=== PATIENT | male | born 1945 | race Caucasian/White ===

== ENCOUNTER 2018-05-18 11:29 | Outpatient (CLI) | payer MEDICARE, OTHER, SELFPAY ==
[2018-05-21 10:14] LABS: PSA, Screening 2.8 ng/ml (0-6.5)
== END 2018-05-18 11:49 ==
PROVIDERS: PCP Emergency Medicine; Visit Provider Emergency Medicine
DX: Z12.5 Encounter for screening for malignant neoplasm of prostate (principal)
CPT/HCPCS: 36415; 84153

== ENCOUNTER 2018-10-20 00:43 | Outpatient (CLI) | payer MEDICARE, OTHER, SELFPAY ==
[2018-10-20 10:37] LABS: Cholesterol 281 mg/dL (50-200); HDL Cholesterol 38 mg/dL (40-60); LDL CHOLESTEROL 134 mg/dL (<100); Triglyceride 386 mg/dL (30-150)
[2018-10-22 10:33] LABS: PSA, Diagnostic 3.3 ng/ml (0-6.5)
== END 2018-10-20 01:03 ==
PROVIDERS: PCP Emergency Medicine; Visit Provider Emergency Medicine
DX: E78.5 Hyperlipidemia, unspecified (principal); N13.8 Other obstructive and reflux uropathy; N40.1 Benign prostatic hyperplasia with lower urinary tract symptoms; Z12.5 Encounter for screening for malignant neoplasm of prostate
CPT/HCPCS: 36415; 80061; 83721; 84153

== ENCOUNTER 2019-01-16 12:55 | Outpatient (CLI) | payer MEDICARE, OTHER, SELFPAY ==
[2019-01-16 13:46] LABS: HCT 40.6 % (40.0-50.0); HGB 13.7 g/dL (13.5-17.5); Mean Corp. HGB Concentration 33.7 g/dL (32.0-36.0); Mean Corpuscular Hemoglobin 31.6 pg (27.0-33.0); Mean Corpuscular Volume 93.8 fL (80-95); Mean Platelet Volume 9.4 fL (8.0-11.0); Platelet Count 322 x1000/uL (130-400); RBC 4.33 m/cumm (4.50-6.00); RBC Distribution Width 12.4 % (11.8-14.1); White Blood Cell Count 6.33 k/cumm (4.4-10.8)
[2019-01-16 13:48] LABS: CREATININE 1.09 mg/dL (0.70-1.30)
[2019-01-16 14:02] LABS: NT-proBNP 85 pg/mL
[2019-01-16 14:15] LABS: D-Dimer 849 ng/mlFEU (<500)
--- NOTE | 2019-01-16 14:19 | DI.CT_ITS ---
SYMPTOMS/DIAGNOSIS: DYSPNEA ON EXERTION, R06.09, + D-DIMER CT ANGIOGRAPHY, CHEST: CT angiography was performed with multi slice acquisition and multi planar and 3D reconstruction. CT angiography of the chest was performed with intravenous infusion of 100cc of Omnipaque 350. Images obtained through the upper abdomen are unremarkable. There is no evidence of pulmonary embolic disease. There is no evidence of thoracic aortic dissection or aneurysm. No mediastinal or hilar adenopathy seen. Tracheobronchial tree appears intact. No pleural effusion or pulmonary consolidation. CONCLUSION: Normal CTA chest.
[2019-01-16] MEDS: Omnipaque 350 MG/ML 100 ML BTL IJ (14:23)
== END 2019-01-16 13:15 ==
PROVIDERS: PCP Emergency Medicine; Visit Provider Emergency Medicine
DX: I50.9 Heart failure, unspecified (principal); R06.09 Other forms of dyspnea; R06.02 Shortness of breath; R79.1 Abnormal coagulation profile
CPT/HCPCS: 71275; 85027; 82565; 83880; 85379; J3490

== ENCOUNTER 2019-01-21 02:03 | Outpatient (CLI) | payer MEDICARE, OTHER, SELFPAY ==
--- NOTE | 2019-01-25 11:14 | HOLTER_ITS ---
HOLTER MONITOR DATE OF DICTATION January 25, 2019 INDICATION Shortness of breath on exertion. 48 hour Holter monitor Baseline sinus rhythm. Mean heart rate 78 beats per minute. Max heart rate 141 beats per minute and minimum heart rate 52 beats per minute. Frequent isolated ventricular ectopy. No nonsustained VT. PVCs 0.5% of total beats.. Rare atrial ectopy. No SVT or atrial fibrillation. No significant pauses or david arrhythmias. No diary entries. Enoch Edmond M.D. BERRY/dread T - 01/25/2019
== END 2019-01-21 02:23 ==
PROVIDERS: PCP Emergency Medicine; Visit Provider Emergency Medicine
DX: R06.02 Shortness of breath (principal); I49.3 Ventricular premature depolarization
CPT/HCPCS: 93225

== ENCOUNTER 2019-01-24 11:21 | Outpatient (CLI) | payer MEDICARE, OTHER, SELFPAY | END 2019-01-24 11:41 | PROVIDERS: PCP Emergency Medicine; Visit Provider Emergency Medicine | DX: R06.02 Shortness of breath (principal); I49.3 Ventricular premature depolarization | CPT/HCPCS: 93226 ==

== ENCOUNTER 2019-01-25 15:00 | Outpatient (CLI) | payer MEDICARE, OTHER, SELFPAY | END 2019-01-25 15:20 | PROVIDERS: PCP Emergency Medicine; Referring Provider Emergency Medicine; Visit Provider Internal Medicine Cardiovascular Disease | DX: R06.02 Shortness of breath (principal); I49.3 Ventricular premature depolarization | CPT/HCPCS: 93227 ==

== ENCOUNTER → 2019-03-01 10:13 | Outpatient (BNVA) | payer MEDICARE, OTHER, SELFPAY | PROVIDERS: PCP Emergency Medicine; Referring Provider Emergency Medicine; Visit Provider Surgery | DX: R13.10 Dysphagia, unspecified (principal); K21.0 Gastro-esophageal reflux disease with esophagitis; I10 Essential (primary) hypertension | CPT/HCPCS: 99202 ==

== ENCOUNTER 2019-03-04 00:51 | Outpatient (CLI) | payer MEDICARE, OTHER, SELFPAY ==
--- NOTE | 2019-03-04 06:46 | DI.NM_ITS ---
APPROVED REPORT Exam: Exercise Treadmill Patient Location: Out-Patient Room/Bed: Stress Nurse: Elba Narayan RN Rhythm: RBBB Indications: Chest Pain, Dyspnea Medical History Medical History: HTN, RBBB, Hyperlipidemia, Smoking Medications: Losartan, Aspirin, Rosuvastatin Allergies: Sulfa Cardiac Risk Factors: HTN, Hyperlipidemia, FHX of CAD, Smoking, SOB Pretest Chest Pain Characteristics: Exertional Chest pain, Dyspnea Exercise History: Indeterminate Stress Test Details Test: Exercise stress testing was performed using a Omid protocol. Nuclear Acquisition: Rest Tc-99m/Stress Tc-99m 1 day Rest Isotope: Tc-99m Sestamibi. Dose: 11.5 Date: 03/04/2019 Injection Time: 0900 Stress Isotope: Tc-99m Sestamibi. Dose: 37.3 Date: 03/04/2019 Injection Time: 1044 HR Resting HR: 56 bpm Max Heart Rate (APMHR): 149 bpm Max HR Achieved: 152 bpm Target HR (85% APMHR): 126 bpm % of APMHR: 102 Recovery HR: 74 bpm HR response to stress: Normal HR response to stress BP Resting BP: 134/80 mmHg Max BP: 184/66 mmHg Recovery BP: 146/84 mmHg BP response to stress: Normal blood pressure response to stress. ECG Resting ECG: Sinus Bradycardia, , Clear, Stress ECG: Sinus Tachycardia, RBBB, ST Change: Upsloping ST depression Maximum ST Deviation: 1 mm Arrhythmia: VPC's Recovery ECG: Sinus Rhythm, RBBB Recovery ST Change: Normal Recovery Arrhythmia: VPC, pauses Clinical Reason for Termination: Maximal effort Stress Symptoms: Chest pain Exercise duration: 7.5 min Highest Stage Achieved: Stage 2: 2.5 mph at 12% grade. Exercise capacity: 9.44 METs Overall Exercise Capacity for Age: Average Stress ECG Conclusion 1. This was a maximal effort stress test 2. Patient demonstrated good exercise tolerance (9.44 METS). 3. ECG stress showed 1mm lateral upsloping ST depressions 4. Patient developed nonlimiting chest discomfort during the test 5. The Swenson Score ( -2) estimates an annual cardiovascular mortality of 1% and a five year survival o f 91% Using the Swenson Score there is an intermediate probability of angiographic coronary disease. MPI Conclusion There was significant bowel uptake which affected the interpretability of the study. Imaging is negative for ischemia. Overall: this represents an equivocal MPI stress test
== END 2019-03-04 01:11 ==
PROVIDERS: PCP Emergency Medicine; Visit Provider Emergency Medicine
DX: I25.10 Atherosclerotic heart disease of native coronary artery without angina pectoris (principal); R07.89 Other chest pain; R06.09 Other forms of dyspnea; I45.10 Unspecified right bundle-branch block; E78.5 Hyperlipidemia, unspecified; I10 Essential (primary) hypertension; F17.200 Nicotine dependence, unspecified, uncomplicated; Z82.49 Family history of ischemic heart disease and other diseases of the circulatory system
CPT/HCPCS: 78452; 93016; 93018; 93017

== ENCOUNTER 2019-05-06 00:11 | Outpatient (CLI) | payer MEDICARE, OTHER, SELFPAY ==
--- NOTE | 2019-05-06 08:00 | PFT_ITS ---
DATE: MAY 06, 2019 REQUESTING PROVIDER: Dr. Sixto John INTERPRETATION SPIROMETRY: Spirometry shows no evidence of obstructive airways disease. No bronchodilator response. LUNG VOLUMES: Lung volumes show no evidence of restriction. DIFFUSION CAPACITY: Normal. AIRWAY RESISTANCE: Normal. IMPRESSION: Normal pulmonary function study. Clinical correlation recommended.
[2019-05-06] MEDS: Inhaler, Assist Device 1 EACH MC (10:50)
[2019-05-06] MEDS: Albuterol HFA 18 GM 200 PUFF INH IH (10:52)
== END 2019-05-06 00:31 ==
PROVIDERS: PCP Emergency Medicine; Visit Provider Emergency Medicine
DX: R06.09 Other forms of dyspnea (principal); R07.9 Chest pain, unspecified
CPT/HCPCS: 94060; 94150; 94726; 94729

== ENCOUNTER 2019-06-12 00:32 | Outpatient (CLI) | payer MEDICARE, OTHER, SELFPAY ==
[2019-06-12] MEDS: Barium Sulfate 60% W/V 355 ML BTL PO (09:35)
--- NOTE | 2019-06-12 09:52 | DI.RAD_ITS ---
EXAM: RF BARIUM SWALLOW CLINICAL HISTORY: DYSPNEA ON EXERTION, R06.09, ACHALASIA OF CARDIA, K22.0 TECHNIQUE: 2D and realtime digital imaging was performed. CONTRAST MATERIAL: Oral barium Oral water soluble contrast was administered. COMPARISON: No exams were available for comparison FINDINGS: Initial plain film of the chest reveals clear lungs. Esophagus: The esophagus is patent with no evidence for erosions, fold thickening, strictures, or ma sses. Tertiary contractions were noted. There is a small hiatal hernia and no gastroesophageal reflu x. IMPRESSION: Tertiary contractions. Small hiatal hernia. Fluoro Time: 1.33
[2019-06-12 11:08] LABS: ESR 16 mm/hr (1-20)
[2019-06-12 11:14] LABS: C-Reactive Protein < 0.05 mg/dL (0.0-0.3)
== END 2019-06-12 00:52 ==
PROVIDERS: PCP Emergency Medicine; Visit Provider Emergency Medicine
DX: R06.09 Other forms of dyspnea (principal); K22.0 Achalasia of cardia; K44.9 Diaphragmatic hernia without obstruction or gangrene; K22.4 Dyskinesia of esophagus
CPT/HCPCS: 36415; 85652; 74221; 86140; J3490

== ENCOUNTER → 2019-12-06 09:13 | Outpatient (BNVA) | payer MEDICARE, OTHER, SELFPAY | PROVIDERS: PCP Emergency Medicine; Referring Provider Emergency Medicine; Visit Provider Surgery | DX: R13.19 Other dysphagia (principal); I10 Essential (primary) hypertension | CPT/HCPCS: 99212; 99213 ==

== ENCOUNTER 2019-12-30 07:23 | Outpatient (CLI) | payer MEDICARE, OTHER, SELFPAY ==
[2019-12-29 00:17] LABS: COVID-19 RT-PCR Result NEGATIVE (Negative)
== END 2019-12-30 07:43 ==
PROVIDERS: PCP Emergency Medicine; Visit Provider Surgery
DX: Z01.818 Encounter for other preprocedural examination (principal)
CPT/HCPCS: U0003

== ENCOUNTER 2019-12-31 06:14 | Day surgery (SDC) | payer MEDICARE, OTHER, SELFPAY ==
--- NOTE | 2019-12-31 04:21 | W.PM.ENDDOP ---
Date of service: 12/31/19 Time of Service: 07:42 Endoscopy Report DATE OF PROCEDURE: 12/31/19 PRE-OP DIAGNOSIS: Dysphagia/ GERD POST-OP DIAGNOSIS: same (Gastritis and esophagitis) PROCEDURE: EGD with biopsies SURGEON: Tania Chance ANESTHESIA: other (Genera/ ASA 2/John Bynum, JEFFREY) ESTIMATED BLOOD LOSS: 3 PATHOLOGY: other (Gastric bx, GE junction bx) COMPLICATIONS: None DISPOSITION: same day INDICATIONS: Mr. Zazueta is a pleasant 74 year old male whom I saw back in February for dysphagia. He did not undergo an EGD because he had some dyspnea as well. Cardiac workup was done at [facility] [place] which was could not find a cardiac issue. He underwent PFT's which were normal. he continues to have some dyspnea on exertion without clear cause. he also complains of heart burn which has improved on Omeprazole 40 mg daily. he continues to have dysphagia especially to hot foods. feels that his dysphagia is a little bit worse then it was in February. He denies a morning cough or hoarsness. He has had no N/V. he also complains of some bloating and increased burping. His last EGD was in 2015 and was negative. Risks, benefits and complications have been reviewed. Complications include but are not limited to bleeding, pain, perforation, sore throat, aspiration, and adverse reaction to the medications. Questions were entertained and answered to their satisfaction and they wished to proceed. No guarantees were given or implied. FINDINGS: mild inflammation in the stomach Schatzki's ring and mild inflammation in the distal esophagus PROCEDURE DESCRIPTION: After informed consent was obtained the patient was take to the procedure room and placed in a supine position. Monitors were applied and a time out was done. The patients name, date of , procedure type, allergies to medications and metal in their body was reviewed. A bite block was placed and the patient was sedated. Once sedated and comfortable the gastroscope was advanced through the oropharynx which was grossly normal into the esophagus. The proximal and mid-esophagus were normal. Normal peristalsis was noted in the esophagus. In the distal esophagus there was some scar tissue and mild inflammation noted. The scope was advanced into the stomach and through the pylorus into the 3rd portion of the duodenum. The duodenum was noted to be normal. The scope was retracted back into the stomach. There was mild inflammation noted. Biopsies were done to rule out H. pylori. There were no ulcers. The scope was retro-flexed. The cardia and fundus were noted to be normal. There was a small hiatal hernia noted. The scope was retracted back into the esophagus. The scar tissue was again noted and biopsies were done of the GE junction to rule out Galindo's. The Z line was regular. The GE junction was at 40 cm. The scope was removed and the patient was woken up and taken back to [facility] in stable condition. Follow up: 2 weeks. Continue with omeprazole 40 mg daily. Add Carafate for 2 weeks
--- NOTE | 2019-12-31 04:23 | W.PM.DSUDISC ---
Discharge Plan Disposition Patient Disposition: HOME Condition: Good Discharge Details Reason For Visit: Dysphagia Attending Provider: Tania Chance Primary Care Provider: Sixto John Home Meds and New Rx's Prescriptions: New sucralfate [Carafate] 1 gram tablet 1 gm PO Q6H Qty: 56 RF: 0 Continued metoprolol succinate 25 mg tablet extended release 24 hr 25 mg PO DAILY Qty: 30 RF: 3 aspirin [Aspir-81] 81 MG tablet,delayed release (DR/EC) 1 tab PO DAILY RF: 0 losartan 25 mg tablet 25 mg PO DAILY Qty: 90 RF: 3 omeprazole 40 mg capsule,delayed release(DR/EC) 40 mg PO DAILY Qty: 90 RF: 3 tamsulosin [Flomax] 0.4 mg capsule 0.8 mg PO HS RF: 0 rosuvastatin [Crestor] 10 mg tablet 10 mg PO HS RF: 0 Discharge Instructions Instructions: Diet for Stomach Ulcers and Gastritis (ED), Esophagitis (DC), Gastritis (DC) Additional Instructions: Findings: mild inflammation in the stomach some scar tissue in the esophagus and inflammation Follow up: 2 weeks Please call if you develop: fevers >101.5 Nausea or Vomiting Abdominal pain that is not transient DAY SURGERY UNIT POST ENDOSCOPY INSTRUCTIONS 1. Because there will be medication in your system for the next 24 hours, you may feel a little sleepy. Your coordination will be affected. Therefore: a. Do not drive or operate dangerous equipment for 24 hours. b. Do not drink alcohol beverages for 24 hours (not even beer). c. Plan to go home and rest for the day. 2. Generally there are no restrictions on your activity after a day or so has gone by, but you may feel a bit fatigued for a few days. 3 After you arrive home you may have a light meal and return to a normal diet as you can tolerate it without feeling sick to your stomach. 4. After surgery, you may feel pain or discomfort. This should be only transient, but if it persists please contact your doctor. 5. If there are any questions regarding the findings of your procedure, please feel free to contact your doctor. 6. If you are unable to contact your doctor with a problem, contact the hospital at [phone]. 7. Continue all your regular medications unless directed otherwise. I understand the above instructions and have no questions. Signature of Patient or Responsible Adult Escort Date/Time Name of Responsible Adult Escort Signature of Nurse Date/Time Referrals: Tania Chance MD [ [facility] STAFF PHYSICIAN] - 01/14/20 8:30 am Activity:: Activity as Tolerated Diet:: low acid Discharge Orders Discharge Orders: Discharge Order (Routine); Ordered 12/31/19 Ordered By: Tania Chance
[2019-12-31 06:27] VITALS: BP 132/82; PULSE 79; RESP 17; TEMP 36.5; O2SAT 94
[2019-12-31] MEDS: Lactated Ringers 1,000 ML 80 ML IV (06:50)
--- NOTE | 2019-12-31 07:35 | STOM_PTH ---
PATIENT: Mihir Kelly LOC: [facility] U#:[id number] AGE/SX: 74/M ROOM: RE12/31/[address]: Tania Chance MD : [id number] BED: DIS: 12/31/2019 SPEC #: [id number] RECD: 12/31/19 12:42 STATUS: URBAN RE #: [id number] RICHELLE: 12/31/19 07:[address]: Tania Chance DEPT: Surgical Specimen RECD BY: Kayla Tabor ENTERED: 12/31/19 12:46 SP TYPE: STOMACH OTHR DR: Sixto John DO Tissues: 1 - STOMACH BIOPSY 2 - ESOPHAGUS BIOPSY Procedures: GROSS AND MICRO LEVEL 4 Comments: [id number]
[2019-12-31 08:15] VITALS: BP 136/90; PULSE 65; RESP 17; TEMP 36.4; O2SAT 96
== END 2019-12-31 08:42 | disposition home or self-care (01) ==
LOC: SUR 06:14
PROVIDERS: PCP Emergency Medicine; Visit Provider Surgery
PROC: 0DJ68ZZ Inspection of Stomach, Via Natural or Artificial Opening Endoscopic (ICD-10-PCS; CPT 43235; principal; 2019-12-31 07:30)
DX: R13.10 Dysphagia, unspecified (principal); K31.89 Other diseases of stomach and duodenum; K21.9 Gastro-esophageal reflux disease without esophagitis; I10 Essential (primary) hypertension
CPT/HCPCS: 43239; 88305; J2001; J2704

== ENCOUNTER → 2020-01-14 10:20 | Outpatient (BNVA) | payer MEDICARE, OTHER, SELFPAY | PROVIDERS: PCP Emergency Medicine; Referring Provider Emergency Medicine; Visit Provider Surgery | DX: Z48.815 Encounter for surgical aftercare following surgery on the digestive system (principal); R13.10 Dysphagia, unspecified | CPT/HCPCS: 99212; 99213 ==

== ENCOUNTER 2020-07-17 00:51 | Outpatient (CLI) | payer MEDICARE, OTHER, SELFPAY ==
--- NOTE | 2020-07-17 07:15 | DI.RAD_ITS ---
EXAM: XR CERVICAL SPINE COMP 4-5V CLINICAL HISTORY: cervical pain, decreased ROM,M54.2. TECHNIQUE: 2D digital imaging was performed. COMPARISON: No exams were available for comparison FINDINGS: There is moderate to severe narrowing of the C5-6 disc space. There are small endplate osteophytes a t this level. There are prominent facet degenerative changes causing neural foraminal narrowing at C 3-4 through C5-6. There are degenerative changes at C1-2. Alignment is normal. There is no prevert ebral soft tissue swelling. The airway appears intact. IMPRESSION: Degenerative changes particularly of the facet joints, causing neural foraminal encroachment at multi ple levels. Degenerative disc changes at C5-6. DATA REPOSITORY: RADIATION DOSE DELIVERED:
== END 2020-07-17 00:52 ==
LOC: DI 00:51
PROVIDERS: PCP Emergency Medicine; Visit Provider Family Medicine
DX: M54.2 Cervicalgia (principal); M50.322 Other cervical disc degeneration at C5-C6 level
CPT/HCPCS: 72050

== ENCOUNTER 2020-08-25 10:01 | Outpatient (REF) | payer MEDICARE, OTHER, SELFPAY ==
[2020-08-25 13:39] LABS: Anion Gap 9.1 mmol/L (3-11); BUN 16 mg/dL (7-18); CO2 26.9 mmol/L (21.0-32.0); CREATININE 1.2 mg/dL (0.70-1.30); Calcium 9.1 mg/dL (8.5-10.1); Chloride 106 mmol/L (98-107); Cholesterol 221 mg/dL (<200); Estimated GFR 59.51 (mL/min/1.73m2); Glucose 114 mg/dL (74-106); HDL Cholesterol 38 mg/dL (40-60); Potassium 4.4 mmol/L (3.5-5.1); Sodium 142 mmol/L (136-145); Triglyceride 415 mg/dL (<150)
[2020-08-25 14:10] LABS: LDL CHOLESTEROL 94 mg/dL (<100)
== END 2020-08-25 10:02 | disposition home or self-care (01) ==
LOC: LBN 10:01
PROVIDERS: PCP Emergency Medicine; Visit Provider Emergency Medicine
DX: I10 Essential (primary) hypertension (principal); E78.5 Hyperlipidemia, unspecified
CPT/HCPCS: 80048; 80061; 83721

== ENCOUNTER 2020-12-14 01:26 | Outpatient (CLI) | payer MEDICARE, OTHER, SELFPAY ==
--- NOTE | 2020-12-14 15:35 | DI.MRI_ITS ---
Exam(s) MR CERVICAL SPINE WO EXAM: MR CERVICAL SPINE WO CLINICAL HISTORY: CERVICAL DISC DISORDER WITH RADICULOPATHY,M50.13 TECHNIQUE: Multiplanar multisequence MRI of the cervical spine was performed without intravenous con trast. COMPARISON: CR XR CERVICAL SPINE COMP 4-5V from 07/17/2020 FINDINGS: CERVICOMEDULLARY JUNCTION: Intact with no evidence of cerebellar tonsillar ectopia. No obvious abnor mality of the odontoid process. No evidence of Chiari 1 malformation. CERVICAL SPINAL CORD: There is no abnormal signal in the cervical spinal cord and no evidence of foca l cord atrophy nor focal cord swelling. OSSEOUS:There are no cervical fractures evident. No significant osseous lesions in the cervical vert ebrae. Cervical curvature is maintained. INDIVIDUAL LEVELS: C2-3: No disc herniation nor central canal stenosis. There is facet arthropathy bilaterally however, no obvious foraminal stenosis. C3-4: No disc herniation nor central canal stenosis.Facet arthropathy noted bilaterally. Mild forami nal stenosis. No foraminal stenosis. C4-5: Normal disc height and signal. No disc herniation. No central canal stenosis.Facet arthropath y noted on the left side. Right facet joint unremarkable. Mild foraminal stenosis on the left side no foraminal stenosis C5-6: This level exhibits advanced disc space narrowing and Modic type 2 sub endplate fatty marrow ch bhavna. Small bilateral Luschka joint osteophytes at this level noted. No prominent disc herniation o r central canal stenosis. Mild facet joint arthropathy bilaterally with mild bilateral foraminal maycol nosis. C6-7: Normal disc height and signal. No disc herniation evident.. No central canal stenosis nor for aminal stenosis. Mild degenerative changes in the facet joints. Less than at the other levels. C7-T1: No disc herniation nor central canal stenosis. No facet arthropathy.No foraminal stenosis. IMPRESSION: 1. Chronic degenerative disc disease at C5-6 level. No disc herniation. No central canal stenosis. 2. C6-7 level appears unremarkable. 3. Multilevel asymmetric facet arthropathy which is detailed for individual level above and which is associated with asymmetric foraminal stenosis. Cervical curvature is maintained. No reversal of the curvature evident. No abnormal signal in the spinal cord and cervical spinal cord exhibits no evidence of focal swelling nor focal atrophy. DATA REPOSITORY:
== END 2020-12-14 01:46 ==
PROVIDERS: PCP Emergency Medicine; Visit Provider Nurse Practitioner
DX: M50.322 Other cervical disc degeneration at C5-C6 level (principal); M47.22 Other spondylosis with radiculopathy, cervical region
CPT/HCPCS: 72141

== ENCOUNTER 2021-03-25 23:18 | Outpatient (REF) | payer MEDICARE, OTHER, SELFPAY ==
[2021-03-25 22:31] LABS: HCT 38.5 % (40.0-50.0); HGB 12.8 g/dL (13.5-17.5); MCH 31.8 pg (27.0-33.0); MCHC 33.2 % (32.0-36.0); MCV 95.8 fL (80-95); MPV 10.9 fL (8.0-11.0); Platelet Count 244 10^3/uL (130-400); RBC 4.02 10^6/uL (4.36-5.78); RDW 12.3 % (11.8-14.1); RDW-SD 43.5 fL; WBC 7.03 10^3/uL (4.4-10.8)
[2021-03-25 22:48] LABS: C-Reactive Protein 0.42 mg/dL (0.0-0.3); TSH 1.82 uIU/mL (0.36-3.74)
== END 2021-03-25 23:19 | disposition home or self-care (01) ==
LOC: LBN 23:18
PROVIDERS: PCP Emergency Medicine; Visit Provider Emergency Medicine
DX: E03.9 Hypothyroidism, unspecified (principal); R53.83 Other fatigue; L71.9 Rosacea, unspecified
CPT/HCPCS: 85027; 84443; 86140

== ENCOUNTER 2021-05-06 19:39 | Outpatient (REF) | payer MEDICARE, OTHER, SELFPAY ==
[2021-05-06 18:19] LABS: Abs Immature Grans 0.01 10^3/uL (0.0-0.06); Absolute Basophil Count 0.03 10^3/uL (0.0-0.2); Absolute Eosinophil Count 0.12 10^3/uL (0.0-0.7); Absolute Lymphocyte Count 2.12 10^3/uL (1.2-3.4); Absolute Monocyte Count 0.48 10^3/uL (0.1-0.8); Absolute Neutrophil Count 3.08 10^3/uL (1.2-6.7); Basophils % 0.5; Eosinophils % 2.1; HCT 38.4 % (40.0-50.0); HGB 12.6 g/dL (13.5-17.5); Immature Grans % 0.2; Lymphocytes % 36.3; MCH 31.3 pg (27.0-33.0); MCHC 32.8 % (32.0-36.0); MCV 95.5 fL (80-95); MPV 9.7 fL (8.0-11.0); Monocytes % 8.2; Neutrophils % 52.7; Nucleated RBC 0 %; Platelet Count 268 10^3/uL (130-400); RBC 4.02 10^6/uL (4.36-5.78); RDW-SD 42.4 fL; WBC 5.84 10^3/uL (4.4-10.8)
[2021-05-06 18:42] LABS: Iron 108 ug/dL (65-175); Total Iron Binding Capacity 211 ug/dL (250-450); Transferrin Sat 51 % (20-55)
[2021-05-06 19:10] LABS: Folate 15.9 ng/mL (8.6-20.0); Vitamin B12 172 pg/mL (193-986)
== END 2021-05-06 19:40 | disposition home or self-care (01) ==
LOC: LBN 19:39
PROVIDERS: PCP Emergency Medicine; Visit Provider Emergency Medicine
DX: D64.9 Anemia, unspecified (principal); F32.A Depression, unspecified; I45.4 Nonspecific intraventricular block
CPT/HCPCS: 82607; 82746; 83540; 83550; 85025

== ENCOUNTER 2021-08-26 04:07 | Outpatient (CLI) | payer MEDICARE, OTHER, SELFPAY ==
[2021-08-26 12:10] LABS: HCT 38.2 % (40.0-50.0); HGB 12.8 g/dL (13.5-17.5); MCH 32.5 pg (27.0-33.0); MCHC 33.5 % (32.0-36.0); Platelet Count 292 10^3/uL (130-400); RBC 3.94 10^6/uL (4.36-5.78); RDW 12.6 % (11.8-14.1); RDW-SD 45.3 fL; WBC 7.07 10^3/uL (4.4-10.8)
[2021-08-26 14:30] LABS: Iron 150 ug/dL (65-175); Total Iron Binding Capacity 235 ug/dL (250-450); Transferrin Sat 64 % (20-55)
== END 2021-08-26 04:08 | disposition home or self-care (01) ==
LOC: LBO 04:07
PROVIDERS: PCP Family Medicine; Visit Provider Emergency Medicine
DX: I45.4 Nonspecific intraventricular block (principal); F32.A Depression, unspecified
CPT/HCPCS: 36415; 85027; 83540; 83550

== ENCOUNTER 2021-10-21 03:23 | Outpatient (CLI) | payer MEDICARE, OTHER, SELFPAY ==
[2021-10-21 09:24] LABS: HCT 40.8 % (40.0-50.0); HGB 13.7 g/dL (13.5-17.5); MCH 32.3 pg (27.0-33.0); MCHC 33.6 % (32.0-36.0); MCV 96 fL (80-95); MPV 8.9 fL (8.0-11.0); Platelet Count 277 10^3/uL (130-400); RBC 4.24 10^6/uL (4.36-5.78); RDW 11.9 % (11.8-14.1); RDW-SD 42.5 fL; WBC 10.65 10^3/uL (4.4-10.8)
[2021-10-21 10:24] LABS: Iron 48 ug/dL (65-175); Total Iron Binding Capacity 285 ug/dL (250-450); Transferrin Sat 17 % (20-55)
[2021-10-21 10:49] LABS: ALT 21 U/L (16-63); AST 12 U/L (15-37); Alkaline Phosphatase 103 U/L (46-116); Anion Gap 9.3 mmol/L (3-11); BUN 16 mg/dL (7-18); Bilirubin, Total 0.4 mg/dL (0.2-1.0); CO2 26.7 mmol/L (21.0-32.0); CREATININE 1.2 mg/dL (0.70-1.30); Calculated LDL 116 mg/dL (<100); Chloride 103 mmol/L (98-107); Cholesterol 226 mg/dL (<200); Estimated GFR 59.18 (mL/min/1.73m2); Ferritin 632 ng/mL (26-388); Folate 13.5 ng/mL (8.6-20.0); Glucose 108 mg/dL (74-106); HDL Cholesterol 49 mg/dL (40-60); Potassium 5.1 mmol/L (3.5-5.1); Sodium 139 mmol/L (136-145); TSH (W/Ref FT4) 2.47 uIU/mL (0.36-3.74); Total Protein 7.2 g/dL (6.4-8.2); Triglyceride 306 mg/dL (<150); Vitamin B12 253 pg/mL (193-986)
[2021-10-21 18:59] LABS: PSA, Screening 3.7 ng/mL (<=6.5)
== END 2021-10-21 03:24 | disposition home or self-care (01) ==
LOC: LBO 03:23
PROVIDERS: PCP Family Medicine; Visit Provider Family Medicine
DX: D64.9 Anemia, unspecified (principal); E78.5 Hyperlipidemia, unspecified; I10 Essential (primary) hypertension; R53.83 Other fatigue; K21.9 Gastro-esophageal reflux disease without esophagitis; N40.0 Benign prostatic hyperplasia without lower urinary tract symptoms; R07.9 Chest pain, unspecified; I45.4 Nonspecific intraventricular block; R06.02 Shortness of breath; R68.89 Other general symptoms and signs; Z12.5 Encounter for screening for malignant neoplasm of prostate
CPT/HCPCS: 36415; 80053; 80061; 84153; 85027; 99215; 82607; 82728; 82746; 83540; 83550; 84443

== ENCOUNTER 2021-10-28 18:31 | Outpatient (REF) | payer MEDICARE, OTHER, SELFPAY ==
[2021-10-28 17:17] LABS: Bilirubin Negative (Negative); Blood Negative (Negative); Clarity Clear (Clear); Glucose Negative (Negative); Ketones Negative (Negative); Leukocyte Esterase Negative (Negative); Nitrite Negative (Negative); Specific Gravity 1.025 (1.005-1.025); Urobilinogen 0.2 EU/dL (Up TO 0.2); pH 5.5 (5-8)
== END 2021-10-28 18:32 | disposition home or self-care (01) ==
LOC: LBN 18:31
PROVIDERS: PCP Family Medicine; Visit Provider Urology
DX: N13.8 Other obstructive and reflux uropathy (principal); N40.1 Benign prostatic hyperplasia with lower urinary tract symptoms
CPT/HCPCS: 81003; 87086

== ENCOUNTER → 2021-12-09 08:26 | Outpatient (BNVA) | payer MEDICARE, OTHER, SELFPAY | PROVIDERS: PCP Family Medicine; Referring Provider Family Medicine; Visit Provider Urology | DX: N40.1 Benign prostatic hyperplasia with lower urinary tract symptoms (principal); N13.8 Other obstructive and reflux uropathy | CPT/HCPCS: 99442 ==

== ENCOUNTER 2022-06-27 02:09 | Outpatient (CLI) | payer MEDICARE, SELFPAY ==
--- NOTE | 2022-06-27 | DI.MRI_ITS ---
Exam(s) MR CERVICAL SPINE WO EXAM: MR CERVICAL SPINE WO CLINICAL HISTORY: CERVICAL SPONDYLOSIS, M47.812, MYOFASCIAL PAIN, M79.18, DAGOBERTO OCCIPITAL TECHNIQUE: Multiplanar multisequence MRI of the cervical spine was performed without intravenous con trast. COMPARISON: MR MR CERVICAL SPINE WO from 12/14/2020 FINDINGS: BONES: Vertebral body heights are maintained. Intervertebral disc spaces are normal. Alignment is nor mal. Mild degenerative endplate signal changes are seen in the cervical spine particularly at C5-C6. CERVICAL CORD: Craniovertebral junction is unremarkable. The cervical cord is normal size and signal intensity. SOFT TISSUES: Unremarkable. C2-3: No disc herniation or bulge is identified. No significant central spinal canal or neural forami nal stenosis. C3-4: No disc herniation or bulge is identified. No significant central spinal canal or neural forami nal stenosis C4-5: No disc herniation or bulge is identified. No significant central spinal canal stenosis. There is mild left neural foraminal stenosis. No significant right neural foraminal stenosis. C5-6: No disc herniation or disc bulge. There are mild degenerative changes of the facets bilaterall y. There is mild narrowing of the neural foramen bilaterally. No significant central spinal canal s tenosis. C6-7: No disc herniation or bulge is identified. No significant central spinal canal or neural forami nal stenosis C7-T1: No disc herniation or bulge is identified. No significant central spinal canal or neural adolph inal stenosis IMPRESSION: Stable degenerative changes in the cervical spine. DATA REPOSITORY:
== END 2022-06-27 02:29 ==
LOC: DI 02:09
PROVIDERS: PCP Family Medicine; Visit Provider Nurse Practitioner
DX: M47.812 Spondylosis without myelopathy or radiculopathy, cervical region (principal); M79.18 Myalgia, other site; M54.81 Occipital neuralgia
CPT/HCPCS: 72141

== ENCOUNTER 2022-06-28 00:44 | Outpatient (CLI) | payer MEDICARE, SELFPAY ==
--- NOTE | 2022-06-28 06:45 | DI.NM_ITS ---
APPROVED REPORT Exam: Exercise Treadmill Patient Location: Out-Patient Room/Bed: Stress Nurse: Dahlia Gamble RN Ordering Provider:NATALIA HAWLEY, Contact Number: [phone] BMI: 29.64 Baseline Rhythm: Sinus Bradycardia Comment: RBBB Indications: Chest pain and SOB Medical History Medical History: ETOH abuse, RBBB, hypertension, hyperlipidemia, GERD, depression Cardiac Medications: Rosuvastatin, omeprazole, losartan, aspirin Allergies: Sulfonamide antibiotics Cardiac Risk Factors: Hypertension, hyperlipidemia, family hx Previous Cardiac Procedures: None Pretest Chest Pain Characteristics: None Exercise History: Indeterminate Physical Disabilities: None Lung Sounds: Clear to auscultation, Clear to auscultation Heart Sounds: Regular Stress Test Details Test: Exercise stress testing was performed using a Omid protocol. Nuclear Acquisition: Rest Tc-99m/Stress Tc-99m 1 day Rest Isotope: Tc-99m Sestamibi. Dose: 10.1 Date: 06/28/2022 Injection Time: 0850 Stress Isotope: Tc-99m Sestamibi. Dose: 32.0 Date: 06/28/2022 Injection Time: 1133 HR Resting HR Supine: 59 bpm Max Heart Rate (APMHR): 146.696548 bpm Resting HR Standin bpm Target HR (85% APMHR): 124.376513 bpm Max HR Achieved: 152 bpm % of APMHR: 104.11 Recovery HR: 75 bpm HR response to stress: Normal HR response to stress BP Resting BP Supine: 154/90 mmHg Resting BP Standin/84 mmHg Max BP: 186/70 mmHg Recovery BP: 158/90 mmHg BP response to stress: Normal blood pressure response to stress. ECG Resting ECG: Sinus Rhythm, RBBB Ectopy: None Stress ECG: Sinus Tachycardia, RBBB ST Change: No significant ST segment changes noted Arrhythmia: Frequent PACs, occasional PVCs Recovery ECG: Sinus Rhythm, RBBB Recovery ST Change: No significant ST segment changes noted Recovery Arrhythmia: Frequent PACs, PACs w/ compensatory pauses, PVCs Comment: Ectopy decreased during recovery period. Clinical Reason for Termination: Fatigue Stress Symptoms: General Fatigue, Chest burning Exercise duration: 7 min12 sec Highest Stage Reached: Stage 3: 3.4 mph at 14% grade. Exercise capacity: 8.90 METs Angina Score: Non-Limiting Rate Pressure Product: 23755 Stress ECG Conclusion 1. Resting electrocardiogram showed a right bundle branch block 2. Patient exercised on the Omid protocol and completed a workload of 8.9 METS 3. Normal heart rate and blood pressure response to exercise. Patient achieved greater than 100% of predicted heart rate for age 4. There was no electrocardiographic evidence of myocardial ischemia 5. Atrial and ventricular ectopy was noted 6. See MPI report Stress Test Summary STAGE Time (mins) Speed (mph) Grade (%) HR BP SpO2 SYMPTOMS METS Supine 59 154/90 Standing 69 140/84 96% 1 3 1.7 10 109 168/94 92% 4.5 2 6 2.5 12 138 174/88 93% 7 3 9 3.4 14 148 93% 10 1 min recovery 128 186/70 95% 3 min recovery 83 178/90 96% 6 min recovery 75 158/90 97% MPI Conclusion Myocardial perfusion is normal. There is no ischemia or evidence of prior infarction EF 59%, normal wall motion Radiologist Interpretation Radiologist agrees with Flower Planter's Interpretation. Radiologist Interpretation by: Jessy Flowers MD Interpretation Date/Time: 06/30/2022 14:07:07
== END 2022-06-28 01:04 ==
LOC: DI 00:44
PROVIDERS: PCP Family Medicine; Visit Provider Family Medicine
DX: R07.9 Chest pain, unspecified (principal)
CPT/HCPCS: 78452; 93016; 93018; 93017

== ENCOUNTER → 2022-11-10 10:19 | Outpatient (BNVA) | payer MEDICARE, SELFPAY | PROVIDERS: PCP Family Medicine; Referring Provider Family Medicine; Visit Provider Surgery | DX: Z12.11 Encounter for screening for malignant neoplasm of colon (principal); Z86.010 Personal history of colon polyps; R53.83 Other fatigue | CPT/HCPCS: 36415; 99242 ==

== ENCOUNTER 2022-11-10 11:20 | Outpatient (REF) | payer MEDICARE, SELFPAY ==
[2022-11-10 11:50] LABS: Abs Immature Grans 0.01 10^3/uL (0.0-0.06); Absolute Basophil Count 0.03 10^3/uL (0.0-0.2); Absolute Eosinophil Count 0.14 10^3/uL (0.0-0.7); Absolute Lymphocyte Count 2.39 10^3/uL (1.2-3.4); Absolute Monocyte Count 0.58 10^3/uL (0.1-0.8); Absolute Neutrophil Count 3.64 10^3/uL (1.2-6.7); Basophils % 0.4; Eosinophils % 2.1; HCT 36.9 % (40.0-50.0); HGB 12.6 g/dL (13.5-17.5); Immature Grans % 0.1; Lymphocytes % 35.2; MCH 32.4 pg (27.0-33.0); MCHC 34.1 % (32.0-36.0); MCV 95 fL (80-95); MPV 9.2 fL (8.0-11.0); Monocytes % 8.5; Neutrophils % 53.7; Platelet Count 273 10^3/uL (130-400); RBC 3.89 10^6/uL (4.36-5.78); RDW 12.5 % (11.8-14.1); RDW-SD 43.8 fL; WBC 6.79 10^3/uL (4.4-10.8)
[2022-11-10 12:13] LABS: Iron 117 ug/dL (65-175); Total Iron Binding Capacity 253 ug/dL (250-450); Transferrin Sat 46 % (20-55)
[2022-11-10 13:04] LABS: ALT 25 U/L (16-63); Albumin 3.8 g/dL (3.4-5.0); Alkaline Phosphatase 99 U/L (46-116); Anion Gap 8.8 mmol/L (3-11); BUN 15 mg/dL (7-18); Bilirubin, Total 0.3 mg/dL (0.2-1.0); CO2 26.2 mmol/L (21.0-32.0); CREATININE 1.1 mg/dL (0.70-1.30); Calcium 8.9 mg/dL (8.5-10.1); Chloride 103 mmol/L (98-107); Estimated GFR 70.01 (mL/min/1.73m2); Ferritin 755 ng/mL (26-388); Folate 14.8 ng/mL (8.6-20.0); Glucose 141 mg/dL (74-106); Potassium 4.8 mmol/L (3.5-5.1); Sodium 138 mmol/L (136-145); Vitamin B12 202 pg/mL (193-986)
[2022-11-10 13:14] LABS: AST 14 U/L (15-37)
== END 2022-11-10 11:21 | disposition home or self-care (01) ==
LOC: LBN 11:20
PROVIDERS: PCP Family Medicine; Visit Provider Surgery
DX: D64.9 Anemia, unspecified (principal); I10 Essential (primary) hypertension; R53.83 Other fatigue; R73.09 Other abnormal glucose; E78.5 Hyperlipidemia, unspecified; K21.00 Gastro-esophageal reflux disease with esophagitis, without bleeding; K57.30 Diverticulosis of large intestine without perforation or abscess without bleeding; R79.89 Other specified abnormal findings of blood chemistry; Z79.899 Other long term (current) drug therapy
CPT/HCPCS: 80053; 82607; 82728; 82746; 83540; 83550; 85025

== ENCOUNTER 2022-11-11 13:53 | Outpatient (CLI) | payer MEDICARE, SELFPAY ==
--- NOTE | 2022-11-11 12:00 | DI.RAD_ITS ---
Exam(s) XR CHEST 2V PA LATERAL EXAM: XR CHEST 2V PA LATERAL CLINICAL HISTORY: dyspnea, shortness of breath, R06.02. TECHNIQUE: 2D digital imaging was performed. COMPARISON: CR,RF RF BARIUM SWALLOW from 06/12/2019 FINDINGS: 2 views: Heart size is normal. The mediastinum is not widened. Mild elevation left hemidiaphragm again noted, No obvious infiltrates on the frontal view. On the lateral view there is a band of increased density projected over the heart which is either in the right middle lobe or lingular segment left lung. Ho wever, patient's arms are over this region and this may be artifact. Recommend repeating lateral vie w with arms elevated. IMPRESSION: Recommend repeating lateral view reasons as above. Cannot exclude infiltrate as seen on the lateral view. No pleural effusions. DATA REPOSITORY: RADIATION DOSE DELIVERED:
== END 2022-11-11 14:13 ==
LOC: DI 13:54
PROVIDERS: PCP Family Medicine; Visit Provider Family Medicine
DX: R06.02 Shortness of breath (principal)
CPT/HCPCS: 71046

== ENCOUNTER 2022-11-18 01:09 | Outpatient (CLI) | payer MEDICARE, SELFPAY ==
--- NOTE | 2022-11-18 07:54 | DI.RAD_ITS ---
Exam(s) XR CHEST 1V IN DI DEPT EXAM: XR CHEST 1V IN DI DEPT CLINICAL HISTORY: Lateral view only, SHORTNESS OF BREATH, R06.02 TECHNIQUE: 2D digital imaging was performed of the chest. One images were obtained. Lateral views were obtained. COMPARISON: CR XR CHEST 2V PA LATERAL from 11/11/2022 FINDINGS: HEART: Normal. PULMONARY VASCULATURE: Normal. LUNGS: Clear. PLEURAL SPACE: No pleural effusion or pneumothorax. BONE:Within normal limits for the patient's age. OTHER FINDINGS:Normal. IMPRESSION: No acute pulmonary findings. No evidence of a pulmonary infiltrate. DATA REPOSITORY: RADIATION DOSE DELIVERED:
== END 2022-11-18 01:29 ==
LOC: DI 01:09
PROVIDERS: PCP Family Medicine; Visit Provider Family Medicine
DX: R06.02 Shortness of breath (principal)
CPT/HCPCS: 71045

== ENCOUNTER 2022-11-18 11:52 | Day surgery (SDC) | payer MEDICARE, SELFPAY ==
[2022-11-18 12:14] VITALS: BP 119/74; PULSE 84; RESP 17; TEMP 36.6; O2SAT 96
[2022-11-18] MEDS: Lactated Ringers 1,000 ML 80 ML IV (12:27)
--- NOTE | 2022-11-18 12:50 | W.ANESPRE ---
General Info Date of Service Date Performed: 11/18/22 Height: 5 ft 10.08 in Weight: 85.4 kg Body Mass Index (BMI): 26.9 Surgical Procedure: Operation Date: 11/18/22 12:05 Proposed Procedure Side Surgeon p Colonoscopy/Gastroscopy Mery Strauss, DO Actual Procedure Side Surgeon p Colonoscopy/Gastroscopy Mery Strauss, DO Meds Allergies and Home Medications Allergies Allergy/AdvReac Type Severity Reaction Status Date / Time Sulfa (Sulfonamide Allergy Hives Verified 11/18/22 12:19 Antibiotics) Home Medication Medication Instructions Recorded aspirin 81 mg tablet,delayed 1 tab PO DAILY 09/13/12 release (Aspir-) ibuprofen 200 mg tablet (Advil) 400 mg PO Q6H PRN 07/16/20 gabapentin 100 mg capsule 200 mg PO TID 08/12/21 rosuvastatin 10 mg tablet (Crestor) 10 mg PO HS #90 tabs 04/11/22 sertraline 50 mg tablet 50 mg PO DAILY #90 tabs 06/22/22 losartan 25 mg tablet 25 mg PO DAILY #90 tab-caps 08/02/22 omeprazole 40 mg capsule,delayed 40 mg PO DAILY #90 tab-caps 10/26/22 release tamsulosin 0.4 mg capsule 0.8 mg PO QHS 11/11/22 Current Visit Medications: Current Medications Generic Name Dose Route Start Last Admin Trade Name Freq PRN Reason Stop Dose Admin Hyoscyamine Sulfate 0.125 mg 11/18/22 09:04 Hyoscyamine 0.125 Mg Sl/Oral/Chew SL 12/18/22 09:03 DIRECTED PRN Ringer's Solution 1,000 mls @ 80 mls/hr 11/18/22 06:00 11/18/22 12:27 IV 11/18/22 23:59 80 mls/hr INFUSION NAVEEN Administration IV Miscellaneous Supplies 1 each 11/18/22 06:00 Iv Access IV 11/18/22 23:59 DIRECTED NAVEEN Ondansetron HCl 4 mg 11/18/22 09:04 Ondansetron 4 Mg/2 Ml Vial IVP 12/18/22 09:03 Q4H PRN PRN Nausea / Vomiting Sodium Chloride 0 ml 11/18/22 06:00 Normal Saline Flush 10 Ml Syr IV 11/18/22 23:59 PRN PRN Sodium Chloride 0 ml 11/18/22 06:00 Normal Saline 10 Ml Vial IJ 11/18/22 23:59 DIRECTED PRN Sterile Water 0 ml 11/18/22 06:00 Water,Injection,Sterile 10 Ml Vial IJ 11/18/22 23:59 DIRECTED PRN PFSH Active Problems Active Problems: Problem Status Onset Code History of colon polyps Z86.010 Elevated ferritin R79.89 Skin lesion L98.9 Fatigue R53.83 Neck pain on left side M54.2 Conductive hearing loss, external ear 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 Impacted cerumen, bilateral H61.23 Eye pain H57.10 Depression F32.A Screening for colon cancer Z12.11 Hearing loss H91.90 Tinnitus H93.19 Hyperglycemia R73.9 Essential hypertension I10 BPH w urinary obs/LUTS N40.1, N13.8 Anemia D64.9 Neck pain M54.2 Rosacea L71.9 Hyperlipidemia E78.5 Gastroesophageal reflux disease with esophagitis K21.0 Essential hypertension 03/19/13 I10 Contact dermatitis L25.9 Chest pain R07.9 Bundle branch block 04/27/05 I45.4 Alcohol abuse 07/19/12 F10.10 Abdominal pain, unspecified site 07/13/12 R10.9 Medical History Medical History Acute pancreatitis (07/03/13) 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 DANIEL Diverticulosis of colon without diverticulitis Family history of colon cancer in father and Brother Surgical History Surgical History Colonoscopy - [facility] (11/08/17) [facility]; EARLY DIVERTICULOSIS; DUODENITIS OF THE BULB EGD - [facility] (09/06/12) 2016-negative History of esophagogastroduodenoscopy LAMINECTOMY (~1989) Status post laminectomy Tobacco Smoking/Tobacco Use Status: Never Smokeless tobacco user: snuff Second hand exposure: Yes Alcohol Alcohol Intake: current Alcohol intake frequency: a few times a month Alcohol type: beer Substance Use Substance use: Never Substance use type: does not use Vital Signs and Lab Results Vital Signs Most Recent Vital Signs in EMR: Most Recent Vital Signs Temp Pulse Resp BP Pulse Ox 36.6 C 84 17 119/74 96 11/18/22 12:14 11/18/22 12:14 11/18/22 12:14 11/18/22 12:14 11/18/22 12:14 Lab Results Blood Type / Crossmatch: No Data to Display Complete Blood Count: White Blood Count 6.79 10^3/uL (4.4-10.8) 11/10/22 11:10 Red Blood Count 3.89 10^6/uL (4.36-5.78) L 11/10/22 11:10 Hemoglobin 12.6 g/dL (13.5-17.5) L 11/10/22 11:10 Hematocrit 36.9 % (40.0-50.0) L 11/10/22 11:10 Platelet Count 273 10^3/uL (130-400) 11/10/22 11:10 Complete Metabolic Panel: Sodium 138 mmol/L (136-145) 11/10/22 11:10 Potassium 4.8 mmol/L (3.5-5.1) 11/10/22 11:10 Chloride 103 mmol/L (98-107) 11/10/22 11:10 Carbon Dioxide 26.2 mmol/L (21.0-32.0) 11/10/22 11:10 BUN 15 mg/dL (7-18) 11/10/22 11:10 Creatinine 1.1 mg/dL (0.70-1.30) 11/10/22 11:10 Est GFR (CKD-EPI 2020) 70.01 (mL/min/1.73m2) 11/10/22 11:10 Calcium 8.9 mg/dL (8.5-10.1) 11/10/22 11:10 Albumin 3.8 g/dL (3.4-5.0) 11/10/22 11:10 Glucose 141 mg/dL (74-106) H 11/10/22 11:10 Liver Function Panel: Alanine Aminotransferase (ALT/SGPT) 25 U/L (16-63) 11/10/22 11:10 Aspartate Amino Transf (AST/SGOT) 14 U/L (15-37) L 11/10/22 11:10 Coagulation Panel: No Data to Display Cardiac Panel: No Data to Display Arterial Blood Gas: No Data to Display Venous Blood Gas: No Data to Display Pancreas Panel: No Data to Display Thyroid Panel: No Data to Display Infectious Disease: No Data to Display Blood Cultures: No Data to Display Toxicology Panel: No Data to Display Anesthesia Assessment and Plan Anesthesia History Personal History: No History of Anesthesia Complications Family History: No Family History of Anesthesia Complications Exercise Tolerance Exercise Tolerance: Metabolic Equivalents>4 Pertinent Negatives Pertinent Negatives: No Symptoms of GERD Cardiac & Pulmonary Exam Cardiac Exam: Normal S1/S2 Heart Sounds Pulmonary Exam: Clear Bilateral Breath Sounds Implantable Cardiac Device Does patient have a Pacemaker or an ICD?: No Airway Exam Known Difficult Airway: No Mallampati Class: 2 Mouth Opening: Normal (> 3cm) Thyromental Distance: Greater than 3 cm Neck Range of Motion: Full ROM Neck Circumference: Normal Teeth Condition: Normal Dentition ASA Classification ASA Score: ASA 2 Emergency Case?: No NPO Status NPO Status: NPO Clears >2 hours, Solids >8 hours Anesthesia Plan Resuscitation Status: Full Code Anesthesia Technique: General Anesthesia Airway Planned: Natural Airway Monitors Used: Standard Monitors
[2022-11-18 12:51] VITALS: BMI 26.9
--- NOTE | 2022-11-18 13:04 | STOM_PTH ---
PATIENT: Mihir Kelly LOC: [facility] U#:[id number] AGE/SX: 77/M ROOM: RE11/18/[address]: Mery Strauss : 1945 BED: DIS: 11/18/2022 SPEC #: [id number] RECD: 11/18/22 16:42 STATUS: [facility] #: [id number] RICHELLE: 11/18/22 13:[address]: Mery Strauss DEPT: Surgical Specimen RECD BY: Kayla Tabor ENTERED: 11/18/22 16:44 SP TYPE: STOMACH OTHR DR: Mateusz Cody MD Tissues: 1 - BIOPSY BOWEL 2 - BIOPSY BOWEL 3 - STOMACH BIOPSY 4 - STOMACH BIOPSY 5 - ESOPHAGUS BIOPSY 6 - ESOPHAGUS BIOPSY 7 - BIOPSY BOWEL Procedures: GROSS AND MICRO LEVEL 4 Comments: [id number]
[2022-11-18 13:40] VITALS: BP 116/74; PULSE 62; RESP 16; TEMP 36.5; O2SAT 95
--- NOTE | 2022-11-18 13:47 | ENDO_ITS ---
Date of service: 11/18/22 Time of Service: 13:48 Endoscopy Report DATE OF PROCEDURE: 11/18/22 PRE-OP DIAGNOSIS: dysphagia /hx GERD POST-OP DIAGNOSIS: other (bile reflux ) SURGEON: Mery Strauss ANESTHESIA TYPE: General:No Airway ESTIMATED BLOOD LOSS: 1 PATHOLOGY: other COMPLICATIONS: None DISPOSITION: no change PREP: Miralax/Dulcolax PROCEDURE DESCRIPTION: After informed consent was obtained the patient was take to the procedure room and placed in a supine position. Monitors were applied and a time out was done. The patients name, date of , procedure type, allergies to medications and metal in their body was reviewed. A bite block was placed and the patient was sedated. Once sedated and comfortable the gastroscope was advanced through the oropharynx which was grossly normal into the esophagus. The proximal and mid- esophagus were normal. In the distal esophagus there was no: Stricture, diverticuli, hiatal hernia, or varices. the scope was advanced into the stomach and through the pylorus into the 3rd portion of the duodenum. The duodenum was noted to be normal. Biopsies were done, all specimens are retrieved and no bleeding is noted. The scope was retracted back into the stomach and biopsies were done to rule out H. pylori. there was bile reflux noted through the pylorus upon entering the stomach. There are no ulcers or gastritis noted. The scope was retroflexed. The cardia and fundus were noted to be normal. There is no hiatal hernia noted. The scope was retracted back into the esophagus and biopsies were done of the GE junction to rule out Galindo's. The Z line was regular. The GE junction was at 38 cm. The scope was removed and the morning proceeded with the colonoscopy.
--- NOTE | 2022-11-18 13:49 | W.ANESPOSTOP ---
Postoperative Evaluation Date, Time and Location Date Performed: 11/18/22 Time Performed: 13:49 Patient Location: Day Surgery Unit Vital Signs Most Recent Imported Vital Signs: Most Recent Vital Signs Temp Pulse Resp BP Pulse Ox 36.6 C 84 17 119/74 96 11/18/22 12:14 11/18/22 12:14 11/18/22 12:14 11/18/22 12:14 11/18/22 12:14 Pain Score Most Recent Pain Score: Most Recent Pain Score Pain Level 0 11/18/22 12:14 Assessment Mental Status: Awake (Alert & Oriented to Patient Baseline) Airway and Respiratory Function: Patent airway with normal (patient baseline) respiratory exam Cardiovascular Function: Hemodynamically Stable Hydration Status: Adequately Hydrated Nausea & Vomiting: No Nausea or Vomiting Pain: Pt. Denies Any Pain Peripheral Nerve Block: Patient did not receive a nerve block
--- NOTE | 2022-11-18 13:56 | W.COLOREPORT ---
Date of service: 11/18/22 Time of Service: 15:00 Colonoscopy Report Date of procedure: 11/18/22 Pre-op diagnosis general: anemia/hx of diveritcula Post-op diagnosis procedure note: other (tics adn polyps) Surgeon: Mery Strauss Anesthesia Type: General:No Airway Estimated blood loss (mL): 1 Pathology: other Complications: None Disposition: same day Prep: Miralax/Dulcolax Retraction Time: 11 Procedure Description: After informed consent was obtained the patient was taken to the procedure room and placed in a left decubitous position. Monitors were applied and a time out was done. The patients name, date of , procedure, allergies to medications and metal in their body was reviewed. The patient was then sedated. Once sedated and comfortable a rectal exam was done. External exam was normal; he does have a few external hemorrhoidal tags internal exam revealed a normal sphincter tone and no palpable masses. The scope was then introduced and retrofelexed. No internal hemorrhoids were identified; does have a few internal hemorrhoidal tags . The scope was then advanced to the cecum w/out Pain. Difficulty. The TI and appendiceal orifice were identified. The prep was BBPS 3 In all segments for a total of 9. The scope was then slowly retracted over 11 minutes back into the rectum. He has a flat 5 mm polyps were removed at 30 cm that is removed with a cold biting forcep. All specimen is retrieved and no bleeding is noted. He has a few small mouth diverticula confined to the sigmoid colon. There is no signs of active bleeding or infection. There is no other abnormalities noted in the colon. The mucosa is pink and healthy. . The scope was removed and the patient was woken up and taken back to Same day surgery in stable condition. The patient tolerated the procedure well and there were no immediate complications. Follow up: The patient does not require any routine further screening colonoscopies, unless they develop changes in bowel habits or other new gastrointestinal complaints.
--- NOTE | 2022-11-18 14:00 | PDOC.DSDIS_ITS ---
Date of service: 11/18/22 Time of Service: 14:00 Discharge Plan Disposition Patient Disposition: Home Condition: Good Discharge Details Attending Provider: Mery Strauss Primary Care Provider: Mateusz Cody Home Meds and New Rx's Prescriptions: Continued gabapentin 100 mg capsule 200 mg PO TID tamsulosin 0.4 mg capsule 0.8 mg PO QHS ibuprofen [Advil] 200 mg tablet 400 mg PO Q6H PRN sertraline 50 mg tablet 50 mg PO DAILY Qty: 90 3RF aspirin [Aspir-81] 81 MG tablet,delayed release (DR/EC) 1 tab PO DAILY rosuvastatin [Crestor] 10 mg tablet 10 mg PO HS Qty: 90 3RF losartan 25 mg tablet 25 mg PO DAILY Qty: 90 3RF omeprazole 40 mg capsule,delayed release(DR/EC) 40 mg PO DAILY Qty: 90 3RF Discharge Instructions Additional Instructions: [facility] Colonoscopy Post- Op Instructions Instructions for Everyone who is given Anesthesia: For your safety, please do the following for the next twenty-four (24) hours: *Do Not operate a motor vehicle (car, truck, motorcycle, etc.) *Do Not drink alcoholic beverages or use any recreational drugs for the first 24 hours or while taking pain medications. The medications in your body may have a reaction that can be dangerous. *Do Not make any important decisions or sign any important papers. Findings: esophagus/stomach are normal small polyps and diverticula- make sure you are moving your bowels on a regular basis and not straining. Follow up: My office will send a letter in 2 to 3 weeks time with the results the pathology, and when we want to you to repeat the colonoscopy. 1. No lifting over 20 pounds or strenuous activity for the first 24 hours after your procedure. After 24 hours there are no restrictions on your activity but you may feel fatigued for a few days. 2. After you arrive home you may have a light meal and return to your normal diet as you can tolerate it without feeling sick to your stomach. 3. You may have a bloated, gaseous feeling in your belly (abdomen) after a colonoscopy. Passing gas and belching will help. Walking or lying down on your left side with your knees flexed may relieve the discomfort. Call the office at [phone] (Office) or [phone] (Hospital) right away if you notice any of the following: a.Vomiting of blood or ?coffee ground stools?. b.Rectal bleeding 1Tbsp, blood clots or continuous bleeding. c.Severe belly (abdominal) pain. d.A hard distended belly (abdomen) and an inability to pass gas. 4. Please don?t expect to have a normal BM (bowel movement) for 2-3 days after your procedure. 5. If there are questions regarding the findings of your procedure, please contact your doctor 6. If you are unable to contact your doctor with a problem, contact the hospital at [phone]. 7. Continue all your regular medications unless directed otherwise. I understand the above instructions and have no questions. Signature of Patient or Adult Escort Name of Responsible Adult Escort Signature of Nurse Date/Time DIVERTICULAR DISEASE OVERVIEW???A diverticulum is a pouch-like structure that can form through points of weakness in the muscular wall of the colon (ie, at points where blood vessels pass through the wall). Diverticulosis affects men and women equally. The risk of diverticular disease increases with age. It occurs throughout the world but is seen more commonly in developed countries. WHAT IS DIVERTICULAR DISEASE? Diverticulosis???Diverticulosis merely describes the presence of diverticula. Diverticulosis is often found during a test done for other reasons, such as flexible sigmoidoscopy, colonoscopy, or barium enema. Most people with diverticulosis have no symptoms and will remain symptom free for the rest of their lives. A person with diverticulosis may have diverticulitis, or diverticular bleeding. Diverticulitis???Inflammation of a diverticulum (diverticulitis) occurs when there is thinning and breakdown of the diverticular wall. This may be caused by increased pressure within the colon or by hardened particles of stool, which can become lodged within the diverticulum. The symptoms of diverticulitis depend upon the degree of inflammation present. The most common symptom is pain in the left lower abdomen. Other symptoms can include nausea and vomiting, constipation, diarrhea, and urinary symptoms such as pain or burning when urinating or the frequent need to urinate. Diverticulitis is divided into simple and complicated forms. ?Simple diverticulitis, which accounts for 75 percent of cases, is not associated with complications and typically responds to medical treatment without surgery. ?Complicated diverticulitis occurs in 25 percent of cases and usually requires surgery. Complications associated with diverticulitis can include the following: ?Abscess ? a localized collection of pus ?Fistula ? an abnormal tract between two areas that are not normally connected (eg, bowel and bladder) ?Obstruction ? a blockage of the colon ?Peritonitis ? infection involving the space around the abdominal organ ?Sepsis ? overwhelming body-wide infection that can lead to failure of multiple organs Diverticular bleeding???Diverticular bleeding occurs when a small artery located within a diverticulum is eroded and bleeds into the colon. Diverticular bleeding usually causes painless bleeding from the rectum. In approximately 50 percent of cases, the person will see maroon or bright red blood with bowel movements. Is bleeding with a bowel movement normal?It is not normal to see blood in a b owel movement; this can be a sign of several conditions, most of which are not serious (eg, hemorrhoids) but some of which are serious and require immediate treatment. Anyone who sees blood after a bowel movement should consult with their healthcare provider to determine if further testing or evaluation is needed. DIVERTICULOSIS AND DIVERTICULITIS DIAGNOSIS???Diverticulosis is often found during tests performed for other reasons. ?Barium?enema ? This is an x-ray study that uses barium in an enema to view the outline of the lower intestinal tract. This is an older test and has been largely replaced by computed tomography (CT) scan. ?Flexible sigmoidoscopy ? This is an examination of the inside of the sigmoid colon with a thin, flexible tube that contains a camera. ?Colonoscopy ? This is an examination of the inside of the entire colon. ?CT scan ? A CT scan is often used to diagnose diverticulitis and its complications. If diverticulitis (not just diverticulosis) is suspected, the above three tests should not be used because of the risk of perforation. TREATMENT Diverticulosis???People with diverticulosis who do not have symptoms do not require treatment. However, most clinicians recommend increasing fiber in the diet, which can help to bulk the stools and possibly prevent the development of new diverticula, diverticulitis, or diverticular bleeding. Fiber is not proven to prevent these conditions in all patients but may help to control recurrent episodes in some. Increase fiber???Fruits and vegetables are a good source of fiber.? Fiber content of packaged foods can be calculated by reading the nutrition label. Seeds and nuts???Patients with diverticular disease have historically been advised to avoid whole pieces of fiber (such as seeds, corn, and nuts) because of concern that these foods could cause an episode of diverticulitis. However, this belief is completely unproven. We do not suggest that patients with di verticulosis avoid seeds, corn, or nuts. Diverticulitis???Treatment of diverticulitis depends upon how severe your symptoms are. Home treatment???If you have mild symptoms of diverticulitis (mild abdominal pain, usually left lower abdomen), you can be treated at home with a clear liquid diet and oral antibiotics. However, if you develop one or more of the following signs or symptoms, you should seek immediate medical attention: ?Temperature >100.1?F (38?C) ?Worsening or severe abdominal pain ?An inability to tolerate fluids Hospital treatment???If you have moderate to severe symptoms, you may be hospitalized for treatment. During this time, you are not allowed to eat or drink; antibiotics and fluids are given into a vein. If you develop an abscess of the colon, you may require drainage of the abscess (usually performed by placing a drainage tube across the abdominal wall) or by surgically opening the affected area. Surgery???If you develop a generalized infection in the abdomen (peritonitis), you will usually require an emergency operation. A two-part operation may be necessary in some cases. ?The first operation involves removal of the diseased colon and creation of a colostomy. A colostomy is an opening between the colon and the skin, where a bag is attached to collect waste from the intestine. The lower end of the colon is temporarily sewed closed to allow it to heal. ?Approximately three to six months later, a second operation is performed to reconnect the two parts of the colon and close the opening in the skin. You are then able to empty your bowels through the rectum. Sometimes patients require up to a year to recover from the first operation, depending on how sick they were. In non-emergency situations, the diseased area of the colon can be removed and the two ends of the colon can be reconnected in one operation, without the need for a colostomy. Surgery versus medical therapy???An operation to remove the diseased area of the colon may be necessary if you do not improve with medical therapy. After an episode of uncomplicated diverticulitis, elective surgery is generally not required as the risk of another attack or requiring emergency surgery is low. However, patients with persistent symptoms attributable to diverticulitis, a history of complicated diverticulitis, or a compromised immune system should be evaluated for possible surgery to prevent another attack. In such patients, another attack has been associated with a higher risk of complications or . Of course, the decision will also depend in part upon your other medical conditions and ability to undergo surgery. In many cases, an elective operation can be performed laparoscopically, using small incisions, rather than the typical vertical (up and down) abdominal incision. Laparoscopic surgery usually allows you to recover more quickly and shortens the hospital stay. After diverticulitis resolves???After an episode of diverticulitis resolves, if you have not had a recent colonoscopy, the entire length of the colon should be evaluated to determine the extent of disease and to rule out the presence of abnormal lesions such as polyps or cancer. Recommended tests include colonoscopy, barium enema and sigmoidoscopy, or CT colonography. Diverticular bleeding???Most cases of diverticular bleeding resolve on their own. However, some people will need further testing or treatment to stop bleeding, which may include a colonoscopy, angiography (a treatment that blocks off the bleeding artery), bleeding scan, or surgery. DIVERTICULAR DISEASE PROGNOSIS Diverticulosis???Over time, diverticulosis may cause no problems or it may cause episodes of bleeding and/or diverticulitis. Approximately 15 to 25 percent of people with diverticulosis will develop diverticulitis, while 5 to 15 percent will develop diverticular bleeding. Diverticulitis???Approximately 85 percent of people with uncomplicated diverticulitis will respond to medical treatment, while approximately 15 percent of patients will need an operation. After successful treatment for a first attack of diverticulitis, one-third of patients will remain asymptomatic, one- third will have episodic cramps without diverticulitis, and one-third will go on to have a second attack of diverticulitis. The prognosis tends to remain similar following a second attack of diverticulitis. Only 10 percent of people remain symptom-free after a second attack. Subsequent attacks tend to be of similar severity, not increasing in severity as previously believed. High Fiber Diet What is Dietary Fiber? All fiber comes from plants, bushes, igor or trees.? Of course, the ones that we eat provide us with fruits, vegetables and grains.? There are many different types of fiber but the three that are most important to the health of the body are: Insoluble Fiber This fiber does not dissolve in water, nor is it fermented by the bacteria residing in the colon.? Rather, it retains water and in so doing, helps to promote a larger, bulkier and more regular bowel activity.? This, in turn, may be important in preventing disorder such as diverticulosis and hemorrhoids, and in sweeping out certain toxins and cancer causing carcinogens.? Sources of insoluble fiber are: ? whole grain wheat and other whole grains ? corn bran, including popcorn, unflavored and unsweetened ? nuts and seeds ? potatoes and the skins from most fruits from trees such as apples, bananas and avocados ? many green vegetables such as green beans, zucchini, celery and cauliflower ? some fruit plants such as tomatoes and kiwi Soluble Fiber These fibers are fermented or used by the colon bacteria as a food source or nourishment.? When these good bacteria grow and thrive, many health benefits occur in both the colon and the body.? Soluble fiber is present in some degree in most edible plant foods, but the ones with the most soluble fiber include: ? legumes such as peas and most beans, including soybeans ? oats, rye and barley ? many fruits such as berries, plums, apples bananas and pears ? certain vegetables such as broccoli and carrots ? most root vegetables ? psyllium husk supplement products Benefits of a High Fiber Diet The health benefits of a high fiber diet, consumed on a regular basis and reaching recommended amounts (below), are now fairly well-defined. There are some additional benefits in the early research stage with the prebiotic soluble fibers. What is now known regarding a high fiber diet include: Bowel Regularity A high fiber diet promotes regularity with a softer, bulkier and regular stool pattern. This decreases the chance of hemorrhoids, diverticulosis and perhaps colon cancer. Cholesterol and Reduced Triglycerides The soluble fibers are the ones that will reduce cholesterol levels when used on a regular basis. Psyllium husk and prebiotic soluble fiber will also reduce cholesterol. They may also reduce the incidence of coronary heart disease. Oats, flax seeds and legumes or beans are the recommended fibers. Colon Polyps and Cancer It is still not certain if a high fiber diet helps prevent colon cancer. Considerable research suggests that this may occur. Certainly it makes sense to increase regularity and so speed the movement of cancer causing carcinogens through the bowel. In addition, reducing a heavy meat diet reduces the bile flow from the liver in a favorable way. This, too, reduces the amount of carcinogens that reach and are manufactured in the colon. Finally, a high fiber diet, including prebiotic soluble fiber, increases the integrity and health of the wall of the colon. The risk of cancer may be reduced. Colon Wall Integrity A high fiber diet changes the bacterial makeup of the colon toward a more favorable balance. For instance, it is known that those people with obesity, diabetes type 2 and inflammatory bowel disease have a predominance of bad bacteria in the colon. This, in turn, may render the bowel wall weak and allow bacteria and, indeed, even toxins to seep through. A high fiber diet with a modest reduction in animal and meat products may return the bacterial makeup to a more positive balance. This, in particular, has been seen when the soluble fiber prebiotics are added to the diet. Blood Sugar Soluble fiber such as in legumes (beans), oats and in prebiotic fibers slows the absorption of blood sugar and so helps regulate the sugar in the blood. Insoluble fiber on a regular basis is associated with reduced risk of type 2 diabetes. Weight Loss High fiber diets are more filling and give a sense of fullness sooner than an animal and meat based diet does. In addition, the soluble prebiotic fibers have been shown to turn off the hunger hormones produced in the wall of the gut and to increase the hormones that give a sense of fullness. Those hormones are made in the wall of the gut. New medical research has shown that the bacterial makeup in the colon in overweight people is abnormal to the extent that they manufacture and absorb almost twice the number of calories through the colon wall as do normals. Prebiotic fibers (below) will help change this hormonal balancein a favorable way. Bacteria and the Function of the Colon The colon finishes the digestive process. Hopefully, the waste products move through in a nice regular manner. Insoluble fibers help this process by retaining water and so producing a bulkier, softer stool, which is easy to pass. The additional role of the colon is to provide a home for an enormous number of micro-organisms, mostly bacteria. Recent research has shown that there are over 1,000 species of bacteria with a total bacterial count ten times the number of cells in the body. These bacteria play a major role in keeping the colon wall itself healthy. In addition, these good bacteria produce a very strong immune system for the body. They significantly increase calcium absorption and bone density. They provide other documented benefits. It is the soluble fibers in the diet that are so effective in stimulating the growth of good colon bacteria. How Much is Enough? The amount of fiber in food is measured in grams.? National nutritional authori ties recommend the following amounts of dietary fiber daily. Under Age 50? Over Age 50 Men? 38 grams? 30 grams Women??? 25 grams? 21 grams For a week or so, it is best to tally the amount of fiber you are consuming.? Boxed and packaged foods will have the amount of fiber per serving on the nutrition label. Which Fibers and Which Foods are Best? As noted, healthy fiber is only found in plants. The three major categories are whole grains, fruits and vegetables. Whole Grains Wheat, oats, barley, wild or brown rice, amaranth, buckwheat, bulgur, corn, millet, quinoa, rye, sorghum, teff and triticals. By far, wheat, oats and wild or brown rice are most common. Always buy whole grain products. White bread, baked goods and rolls almost always are made from wheat flour. Wheat flour is white because most of the fiber, vitamins and other nutrients have been removed. Try not buy enriched grains. What this means is that simple white flour has had vitamins added to it by the spray crew. The word, enriched, implies a good and healthy product. On the contrary, enriched means that most of the fiber has been removed and a few vitamins added. Fruits Fruits come from trees such as apple and pear or from bushes or igor. You should eat a wide variety of fruits, preferably with every meal. In many cases, the skin of a fruit such as apple will contain much of the insoluble fiber while the pulp contains most of the soluble fiber. To the extent possible, buy organic fruits as these will have little or no pesticides. Always wash fruit. Vegetables Eat a wide variety of vegetables. They should be a mainstay of lunch and dinners. Frozen vegetables retain as much nutrition and fiber as fresh vegetables. As with fruit, try to buy organic to reduce any residual pesticide ingestion. Wash fresh vegetables thoroughly. Cruciferous vegetables such as broccoli, [place] sprouts and cauliflower contain certain chemicals such as sulforaphane. This substance has very strong anti-cancer properties and should be eaten frequently. Legumes, Beans, Peas and Soybeans These vegetables have plenty of soluble fiber and should be part of a varied vegetable intake. Beans, in particular, contain a certain type of fiber that may lead to harmless gas or bloating. Nuts and Seeds These are rich sources of fiber and are a good substitute for sweets such as candies and baked sweet goods. While nuts and seeds are rich in fiber, they also contain vegetable fat and so can and do add calories. Read the Labels As noted, fresh and frozen foods are usually better.? They have good nutrition and few, if any, chemicals added to them.? When buying packaged foods and, in particular grains, look for three things: ? The first word on the label should be whole, such as whole wheat or whole grain. ? Check out the calories and the amount of fiber in a serving. ? How many and what other additives or chemicals are added.? Fewer is always better.? Do you know what each additive does?? Some are added not for the benefit of the commodity buyer but rather for manufacturers.? These could and do include sugar, artificial flavor, chemicals to prevent oxidation and spoilage, emulsifiers to blend the product.? You have to be a denture waxer. Fiber Facts, Nuggets and Pearls ? For breakfast you can easily get the day started well by using a high fiber, whole grain cereal.? Check the labels.? Add fruit such as blueberries and bananas.? If you are an egg eater, use whole wheat or grain toast.? Adding wheat germ gives you a good fiber kick. ? Always use whole grain or wheat with rolls and sandwiches.? Does your fast food store not have them?? Perhaps you look elsewhere.? Eating an occasional black matamoros or veggie burger provides variety. ? Snacks should consist of fruit and/or nuts.? While nuts are loaded with fiber, they are an energy rich food, meaning they have a lot of calories in a small packet. ? Fruit juices should contain pulp.? Clear juices such as clear orange, pear or apple juice contain little fiber and have a lot of fructose.? Prune juice is usually high in fiber. ? Homemade soups ? adding fresh or frozen vegetables to a chicken or vegetable stock is a good way to start homemade soup. ? Salads ? adding cooked and then chilled vegetables provide great flavoring to almost any salad.? Remember, a amaya salad has lots of cooked corn in it.? Small slices of apples or oranges and nuts such as chopped walnuts or sliced almonds always adds taste, variety and fiber to almost any salad. ? Fruit ? Try to eat fruit of some type with almost every meal. ? Rethink how you place the various foods on your dinner plate.? Reducing the portions of the meat or animal food portion to the side with equal or more portions of vegetables, legumes and fruits portion always allows for more fiber.? There was never anything magic about making the meat or animal food portion the main part of the dinner plate.? Eating from smaller plates can, over time, trick your mind and computer terminal operator habit of using a dinner plate.? Again, there is nothing magic in an 11, 12, or 13 inch dinner plate. Fiber Supplements There are a variety of fiber supplements available on the food or pharmacy shelves. Psyllium This soluble plant fiber has been used in [place] for over 2,000 years. It is a soluble fiber with mucilage in it. This acts to retain a lot of water and also is fermented by colon bacteria. When 7 grams a day are used, it does lower cholesterol. Metamucil in various forms is psyllium. Methyl Cellulose All the cellulose products come from finely ground wood chips which are then treated in a variety of ways such as boiling in acids. Methyl cellulose is an insoluble fiber which does dissolve in water. It is also an emulsifier, meaning it blends oils and water. Citrucel is methyl cellulose (MC). MC may not be appropriate for Crohn?s disease or ulcerative colitis as several medical studies have shown that certain emulsifiers dissolve the mucous lining of the colon in animals prone to Crohn?s disease. This then allows bacteria to invade the underlying tissue. Fiber and Gas Everyone has intestinal gas and that is a good thing.? It means that bacteria, hopefully the good ones, are thriving.? The normal amount of flatus passed each day depends on sex and what is eaten.? The normal number of flatus is 10-20 times a day.? When the bacteria that make intestinal gases are growing, it also means that other good bacteria are using the same fibers to grow and produce multiple health benefits, including the production of healthy short-chain fatty acids.? These substances are produced quietly in the colon and produce many health-related outcomes. Soluble fiber should always be used in a gradual manner.? If too much is consumed at any one time, then excess, but harmless, intestinal gas can occur.? People with irritable bowel syndrome are particularly prone to bloating and mild cramping.? In this instance, soluble fiber in the diet or supplement should be used in small doses and increased gradually. Finally, prebiotic fibers tend to cause the production of short-chain fatty acids which acidify the colon.? This, in turn, reduces or stops the growth of bacteria that make the smelly hydrogen sulfide gases that produce noxious flatus.? People who consume many vegetables with prebiotics or take a prebiotic fiber supplement often have non-odoriferous flatus. Fiber and Irritable Bowel Syndrome Irritable bowel syndrome (IBS) is one of the most common disorders of the lower digestive tract.? The symptoms of IBS can be quite varied.? They can be a mix of several symptoms such as constipation, diarrhea, crampy abdominal discomfort, bloating and gas.? An attack of IBS can be triggered by emotional tension and anxiety, poor dietary habits and certain medications.? It is now known that infections in the intestine can lead to long-term IBS symptoms.? Increased amounts of fiber in the diet can help relieve the symptoms of irritable bowel syndrome by producing soft, bulky stools.? This helps to normalize the time it takes for the stool to pass through the colon.? Recent medical research with newer techniques has shown some surprising and dramatic findings for IBS patients.? Specifically, there is a very significant and abnormal shift of bacteria from those that provide health benefits to those bad bacteria that we really do not want in the gut.? The technical name for this bad group of bacteria is called Firmicutes.? Along with this abnormal bacterial collection, there is a smoldering low-grade inflammation in the gut wall that may contribute to symptoms.? The goal for IBS patients should be to gradually increase the soluble dietary fibers in the diet so as to promote the growth of good bacteria and so suppress the bad ones along with the associated inflammation. IBS patients need to be careful of the amount of soluble fiber they consume.? The reason for this is that, while the good colon bacteria thrive on these fibers and produce health benefits, other gas-forming bacteria may generate excessive but harmless gas and subsequent bloating.? Thus, soluble plant fibers or a dietary prebiotic supplement should be taken in small initial doses and th en gradually increased to tolerance. Fiber and Colon Polyps/Cancer Colon cancer is a major health problem. This disease is most common in Western cultures. It is not seen very often in rural cultures where the diet is mostly plant based. Usually, colon cancer starts out as a colon polyp, a benign mushroom-shaped growth. In time it grows, and in some people it becomes c ancerous. Colon cancer is usually always curable if polyps are removed when found or if surgery is performed at an early stage. It is now known that people can inherit the risk of developing colon cancer, but diet is important, too. As noted, there is a very low rate of colon cancer in residents of countries where grains are unprocessed and retain their fiber. It seems that in the [place] world, cancer-containing agents (carcinogens) remain in contact with the colon wall for a longer time and in higher concentrations. So, a large bulky stool may act to dilute these carcinogens by moving them through the bowel more quickly. Less carcinogenic exposure to the colon may mean fewer colon polyps and less cancer. A very current review of the entire world?s literature on the effect of fiber on colon polyps and cancer prevention has shown rather clearly that for every 10 grams of fiber added to the diet, there is a 10% reduction in incidence of colon cancer. So the recommended 30 gram fiber diet would result in a 30% less chance of getting these tumors. There are also substances produced in the colon by the good bacteria that seem to retard certain pre-cancer factors from developing. They are called short- chain fatty acids (SCFA). See above for description of SCFAs. A high fiber diet increases these substances. So, the combination of dietary fiber and the production of short-chain fatty acids have a clear health benefit. Fiber and Diverticulosis Prolonged, vigorous contraction of the colon over a long period of time may result in diverticulosis.? This increased pressure causes small and, eventually, larger ballooning pockets to form.? These pockets by themselves cause no problem.? However, sometimes they become infected (diverticulitis) or even break open (perforate) causing infection or inflammation within the abdomen (peritonitis).? A high fiber diet increases the bulk in the stool and thereby reduces the pressure within the colon.? By so doing, the formation of pockets may be reduced or possibly even stopped. In the past, many physicians were fearful that seeds as in tomatoes, nuts or berries were harmful and could get inside these pockets and rattle around, causing damage. We now know that this has never been the case and that these foods contain lots of fiber and are actually beneficial for diverticulosis patients. Certain bulking agents such as psyllium are traditional types of bulk producing supplements.? Psyllium is a soluble fiber.? Combining it with insoluble fiber as in wheat bran or corn bran (no gluten) can enhance this bulking effect even more.? A product containing a prebiotic, psyllium and wheat bran is probably a very good combination for bowel regularity. Prebiotin [email or web address].[email or web address]/ Regularity/Diverticulosis is one such product. Activity:: see above Diet:: see eabove Discharge Orders Discharge Orders: Discharge Order (Routine); Ordered 11/18/22 Ordered By: Mery Strauss DS: Diagnosis Discharge Diagnosis (1) Bile reflux gastritis: Status: Acute (2) Diverticula of colon: Status: Acute (3) Adenomatous colon polyp: Status: Acute
[2022-11-18 14:10] VITALS: BP 132/76; PULSE 60; RESP 18; TEMP 36.4; O2SAT 97
== END 2022-11-18 15:40 | disposition home or self-care (01) ==
PROVIDERS: PCP Family Medicine; Visit Provider Surgery
PROC: (CPT 45380; principal; 2022-11-18 12:00)
DX: R13.10 Dysphagia, unspecified (principal); K21.9 Gastro-esophageal reflux disease without esophagitis; D64.9 Anemia, unspecified; K63.5 Polyp of colon; K57.30 Diverticulosis of large intestine without perforation or abscess without bleeding; K64.8 Other hemorrhoids
CPT/HCPCS: 45380; 43239; 88305; 71045; J2001

== ENCOUNTER → 2022-12-08 14:48 | Outpatient (BNVA) | payer MEDICARE, SELFPAY | PROVIDERS: PCP Family Medicine; Referring Provider Family Medicine; Visit Provider Surgery | DX: Z48.815 Encounter for surgical aftercare following surgery on the digestive system (principal); A07.1 Giardiasis [lambliasis]; K57.30 Diverticulosis of large intestine without perforation or abscess without bleeding; K29.60 Other gastritis without bleeding; Z86.010 Personal history of colon polyps | CPT/HCPCS: 99212; 99213 ==

== ENCOUNTER 2022-12-12 11:41 | Outpatient (REF) | payer MEDICARE, SELFPAY | END 2022-12-12 11:42 | disposition home or self-care (01) | LOC: LBN 11:41 | PROVIDERS: PCP Family Medicine; Visit Provider Surgery | DX: A07.1 Giardiasis [lambliasis] (principal) | CPT/HCPCS: 87329 ==

== ENCOUNTER 2023-10-26 04:28 | Outpatient (CLI) | payer MEDICARE, SELFPAY ==
[2023-10-31 11:05] LABS: Specimen WB Whole Blood
== END 2023-10-26 04:29 | disposition home or self-care (01) ==
LOC: LBO 04:28
PROVIDERS: PCP Family Medicine; Visit Provider Family Medicine
DX: E83.110 Hereditary hemochromatosis (principal)
CPT/HCPCS: 36415; 81256

== ENCOUNTER 2023-11-10 09:28 | Outpatient (CLI) | payer MEDICARE, SELFPAY ==
[2023-11-10 12:20] LABS: Abs Immature Grans 0.02 10^3/uL (0.0-0.06); Absolute Basophil Count 0.02 10^3/uL (0.0-0.2); Absolute Eosinophil Count 0.11 10^3/uL (0.0-0.7); Absolute Lymphocyte Count 3.07 10^3/uL (1.2-3.4); Absolute Monocyte Count 0.45 10^3/uL (0.1-0.8); Absolute Neutrophil Count 3.39 10^3/uL (1.2-6.7); Basophils % 0.3 %; Eosinophils % 1.6 %; HCT 36.7 % (40.0-50.0); HGB 12.3 g/dL (13.5-17.5); Immature Grans % 0.3 %; Lymphocytes % 43.5 %; MCH 32.1 pg (27.0-33.0); MCHC 33.5 % (32.0-36.0); MCV 96 fL (80-95); MPV 9.4 fL (8.0-11.0); Monocytes % 6.4 %; Neutrophils % 47.9 %; Platelet Count 286 10^3/uL (130-400); RBC 3.83 10^6/uL (4.36-5.78); RDW 12.2 % (11.8-14.1); RDW-SD 42.5 fL; WBC 7.06 10^3/uL (4.4-10.8)
[2023-11-10 12:47] LABS: Ferritin 519 ng/mL (26-388)
[2023-11-10 12:49] LABS: Iron 108 ug/dL (65-175); Total Iron Binding Capacity 248 ug/dL (250-450); Transferrin Sat 44 % (20-55)
== END 2023-11-10 09:29 | disposition home or self-care (01) ==
LOC: LOS 09:28
PROVIDERS: PCP Family Medicine; Visit Provider Family Medicine
DX: E83.110 Hereditary hemochromatosis (principal)
CPT/HCPCS: 36415; 82728; 83540; 83550; 85025

== ENCOUNTER 2024-01-19 00:16 | Outpatient (CLI) | payer MEDICARE, SELFPAY ==
--- NOTE | 2024-01-19 08:30 | DI.RAD_ITS ---
Exam(s) XR SHOULDER RT COMPLETE 2+V EXAM: XR SHOULDER RT COMPLETE 2+V CLINICAL HISTORY: 6 months rt shoulder pain,m25.511. TECHNIQUE: 2D digital imaging was performed. Five views. COMPARISON: No exams were available for comparison FINDINGS: BONES: No acute fracture is present. No bony destructive lesion is seen. JOINTS: No dislocation present. Mild spurring at the AC joint. Glenohumeral joint space is maintain ed. Minimal spurring at the inferior glenoid. SOFT TISSUE: Normal. IMPRESSION: Mild degenerative changes. DATA REPOSITORY: RADIATION DOSE DELIVERED:
== END 2024-01-19 00:36 ==
LOC: DI 00:16
PROVIDERS: PCP Family Medicine; Visit Provider Nurse Practitioner Family
DX: M25.511 Pain in right shoulder (principal)
CPT/HCPCS: 73030

== ENCOUNTER 2024-02-14 02:41 | Outpatient (RCR) | payer MEDICARE, SELFPAY ==
[2024-02-14 14:05] LABS: HCT 36.8 % (40.0-50.0); HGB 12.4 g/dL (13.5-17.5); MCH 32.6 pg (27.0-33.0); MCHC 33.7 % (32.0-36.0); MCV 97 fL (80-95); Platelet Count 256 10^3/uL (130-400); RDW-SD 43.4 fL; WBC 8.22 10^3/uL (4.4-10.8)
[2024-02-14 14:36] LABS: Ferritin 528 ng/mL (26-388)
[2024-02-14] MEDS: Normal Saline Flush 10 ML SYR IVP (14:36)
== END 2024-02-26 23:59 | disposition home or self-care (01) ==
LOC: INF 02:41
PROVIDERS: PCP Family Medicine; Visit Provider Nurse Practitioner Adult Health
DX: E83.118 Other hemochromatosis (principal)
CPT/HCPCS: 36415; 85027; 99195; 82728

== ENCOUNTER 2024-03-28 02:35 | Outpatient (RCR) | payer MEDICARE, SELFPAY ==
[2024-02-29 11:20] LABS: HCT 34.6 % (40.0-50.0); HGB 11.9 g/dL (13.5-17.5); MCH 32.9 pg (27.0-33.0); MCHC 34.4 % (32.0-36.0); MCV 96 fL (80-95); Platelet Count 298 10^3/uL (130-400); RBC 3.62 10^6/uL (4.36-5.78); RDW 12.3 % (11.8-14.1); RDW-SD 42.9 fL; WBC 7.93 10^3/uL (4.4-10.8)
[2024-02-29] MEDS: Normal Saline Flush 10 ML SYR IVP (11:33)
[2024-02-29 11:52] LABS: Ferritin 442 ng/mL (26-388)
[2024-03-14 11:13] LABS: HCT 33.9 % (40.0-50.0); HGB 11.3 g/dL (13.5-17.5); MCH 33.1 pg (27.0-33.0); MCHC 33.3 % (32.0-36.0); MCV 99 fL (80-95); Platelet Count 326 10^3/uL (130-400); RBC 3.41 10^6/uL (4.36-5.78); RDW 12.7 % (11.8-14.1); RDW-SD 46.3 fL; WBC 7.43 10^3/uL (4.4-10.8)
[2024-03-14] MEDS: Normal Saline Flush 10 ML SYR IVP (11:19)
[2024-03-14 11:40] LABS: Ferritin 411 ng/mL (26-388)
[2024-03-28] MEDS: Normal Saline Flush 10 ML SYR IVP (11:04)
[2024-03-28 11:09] LABS: HCT 31.8 % (40.0-50.0); HGB 10.5 g/dL (13.5-17.5); MCH 33.2 pg (27.0-33.0); MCV 101 fL (80-95); MPV 8.9 fL (8.0-11.0); Platelet Count 292 10^3/uL (130-400); RBC 3.16 10^6/uL (4.36-5.78); RDW 12.9 % (11.8-14.1); RDW-SD 47.9 fL; WBC 7.02 10^3/uL (4.4-10.8)
[2024-03-28 12:24] LABS: Ferritin 319 ng/mL (26-388)
== END 2024-03-28 23:59 | disposition home or self-care (01) ==
LOC: INF 02:35
PROVIDERS: PCP Family Medicine; Visit Provider Nurse Practitioner Adult Health
DX: E83.118 Other hemochromatosis (principal)
CPT/HCPCS: 36415; 85027; 99195; 82728

== ENCOUNTER 2024-04-12 01:38 | Outpatient (RCR) | payer MEDICARE, SELFPAY ==
[2024-04-12 12:27] LABS: HCT 37.6 % (40.0-50.0); HGB 12.5 g/dL (13.5-17.5); MCH 32.9 pg (27.0-33.0); MCHC 33.2 % (32.0-36.0); MCV 99 fL (80-95); Platelet Count 347 10^3/uL (130-400); RDW 12.2 % (11.8-14.1); RDW-SD 44.5 fL; WBC 9.15 10^3/uL (4.4-10.8)
[2024-04-12 12:55] LABS: Ferritin 339 ng/mL (26-388)
== END 2024-04-27 23:59 | disposition home or self-care (01) ==
LOC: INF 01:38
PROVIDERS: PCP Family Medicine; Visit Provider Nurse Practitioner Adult Health
DX: E83.118 Other hemochromatosis (principal)
CPT/HCPCS: 36415; 85027; 99195; 82728

== ENCOUNTER 2024-05-02 03:45 | Outpatient (CLI) | payer MEDICARE, SELFPAY ==
[2024-05-02 08:16] LABS: Abs Immature Grans 0.01 10^3/uL (0.0-0.06); Absolute Basophil Count 0.02 10^3/uL (0.0-0.2); Absolute Eosinophil Count 0.14 10^3/uL (0.0-0.7); Absolute Lymphocyte Count 2.72 10^3/uL (1.2-3.4); Absolute Neutrophil Count 3.74 10^3/uL (1.2-6.7); Basophils % 0.3 %; Eosinophils % 1.9 %; HCT 34.4 % (40.0-50.0); HGB 11.5 g/dL (13.5-17.5); Immature Grans % 0.1 %; Lymphocytes % 37.6 %; MCHC 33.4 % (32.0-36.0); MCV 99 fL (80-95); MPV 9.4 fL (8.0-11.0); Monocytes % 8.3 %; Neutrophils % 51.8 %; Platelet Count 290 10^3/uL (130-400); RBC 3.49 10^6/uL (4.36-5.78); RDW 12.5 % (11.8-14.1); RDW-SD 45.1 fL; WBC 7.23 10^3/uL (4.4-10.8)
[2024-05-02 08:46] LABS: ALT 28 U/L (16-63); AST 16 U/L (15-37); Albumin 3.6 g/dL (3.4-5.0); Alkaline Phosphatase 100 U/L (46-116); Anion Gap 8.3 mmol/L (3-11); BUN 19 mg/dL (7-18); Bilirubin, Total 0.26 mg/dL (0.2-1.0); CO2 26.7 mmol/L (21.0-32.0); CREATININE 1.1 mg/dL (0.70-1.30); Calcium 9.2 mg/dL (8.5-10.1); Chloride 107 mmol/L (98-107); Estimated GFR 69.57 (mL/min/1.73m2); Ferritin 198 ng/mL (26-388); Glucose 99 mg/dL (74-106); Potassium 4.2 mmol/L (3.5-5.1); Sodium 142 mmol/L (136-145); Total Protein 7.3 g/dL (6.4-8.2)
== END 2024-05-02 03:46 | disposition home or self-care (01) ==
LOC: LBO 03:45
PROVIDERS: PCP Family Medicine; Visit Provider Nurse Practitioner Adult Health
DX: E83.110 Hereditary hemochromatosis (principal)
CPT/HCPCS: 36415; 80053; 82728; 85025

== ENCOUNTER 2024-05-09 03:09 | Outpatient (RCR) | payer MEDICARE, SELFPAY ==
[2024-05-09 10:59] LABS: HCT 36.2 % (40.0-50.0); MCH 32.6 pg (27.0-33.0); MCHC 33.1 % (32.0-36.0); MCV 98 fL (80-95); MPV 9.2 fL (8.0-11.0); Platelet Count 277 10^3/uL (130-400); RBC 3.68 10^6/uL (4.36-5.78); RDW 11.9 % (11.8-14.1); RDW-SD 43.2 fL; WBC 6.52 10^3/uL (4.4-10.8)
[2024-05-09 11:28] LABS: Ferritin 204 ng/mL (26-388)
== END 2024-05-28 23:59 | disposition home or self-care (01) ==
LOC: INF 03:09
PROVIDERS: PCP Family Medicine; Visit Provider Nurse Practitioner Adult Health
DX: E83.118 Other hemochromatosis (principal)
CPT/HCPCS: 36415; 85027; 99195; 82728

== ENCOUNTER 2024-05-31 11:01 | Outpatient (CLI) | payer MEDICARE, SELFPAY ==
[2024-05-31 12:18] LABS: ESR 8 mm/hr (0-20)
[2024-05-31 12:29] LABS: Uric Acid 5.5 mg/dL (3.5-7.2)
[2024-05-31 12:30] LABS: C-Reactive Protein < 0.50 mg/dL (<or=0.5)
== END 2024-05-31 11:02 | disposition home or self-care (01) ==
LOC: LOS 11:03
PROVIDERS: PCP Family Medicine; Referring Provider Nurse Practitioner Family; Visit Provider Nurse Practitioner Family
DX: M79.644 Pain in right finger(s) (principal)
CPT/HCPCS: 36415; 85652; 84550; 86140

== ENCOUNTER 2024-05-31 12:54 | Outpatient (CLI) | payer MEDICARE, SELFPAY ==
--- NOTE | 2024-05-31 11:36 | DI.RAD_ITS ---
Exam(s) XR HAND RT COMPLETE EXAM: XR HAND RT COMPLETE CLINICAL HISTORY: atraumatic pain of PIP,m79.644. TECHNIQUE: 2D digital imaging was performed. COMPARISON: No exams were available for comparison FINDINGS: 3 views No evidence of acute fracture or dislocation nor radiopaque foreign body. Bone density normal. No o sseous lesions nor erosions. There is degenerative narrowing of the metacarpophalangeal joint of the 3rd-middle finger. There is also degenerative narrowing of the DIP joint of the 2nd-index finger. Other DIP joints appear unrema rkable as do the proximal interphalangeal joints. There are mild degenerative changes at the 1st car pometacarpal joint in the wrist. IMPRESSION: Degenerative changes in the served metacarpophalangeal joint and DIP joint of the 2nd-index finger. DATA REPOSITORY: RADIATION DOSE DELIVERED:
== END 2024-05-31 13:14 ==
LOC: DI 12:57
PROVIDERS: PCP Family Medicine; Visit Provider Nurse Practitioner Family
DX: M79.644 Pain in right finger(s) (principal)
CPT/HCPCS: 36415; 85652; 73130; 84550; 86140

== ENCOUNTER 2024-06-07 00:46 | Outpatient (RCR) | payer MEDICARE, SELFPAY ==
[2024-06-07 10:53] LABS: HCT 39.1 % (40.0-50.0); MCH 32.3 pg (27.0-33.0); MCHC 33.2 % (32.0-36.0); MCV 97 fL (80-95); Platelet Count 317 10^3/uL (130-400); RBC 4.03 10^6/uL (4.36-5.78); RDW 11.8 % (11.8-14.1); RDW-SD 42.5 fL; WBC 9.28 10^3/uL (4.4-10.8)
[2024-06-07 11:20] LABS: Ferritin 138 ng/mL (26-388)
== END 2024-06-28 23:59 | disposition home or self-care (01) ==
LOC: INF 00:46
PROVIDERS: Internal Medicine Hematology & Oncology; PCP Family Medicine; Visit Provider Nurse Practitioner Adult Health
DX: E83.118 Other hemochromatosis (principal)
CPT/HCPCS: 36415; 85027; 99195; 82728

== ENCOUNTER 2024-07-04 01:43 | Outpatient (RCR) | payer MEDICARE, SELFPAY ==
[2024-07-04] MEDS: Normal Saline Flush 10 ML SYR IVP (10:51)
[2024-07-04 11:01] LABS: HGB 12.9 g/dL (13.5-17.5); MCH 32.3 pg (27.0-33.0); MCHC 33.9 % (32.0-36.0); MCV 95 fL (80-95); MPV 9.1 fL (8.0-11.0); Platelet Count 300 10^3/uL (130-400); RBC 3.99 10^6/uL (4.36-5.78); RDW-SD 41.9 fL; WBC 6.36 10^3/uL (4.4-10.8)
[2024-07-04 12:23] LABS: Ferritin 69 ng/mL (26-388)
== END 2024-07-26 23:59 | disposition home or self-care (01) ==
LOC: INF 01:43
PROVIDERS: Internal Medicine Hematology & Oncology; PCP Family Medicine; Visit Provider Nurse Practitioner Adult Health
DX: E83.118 Other hemochromatosis (principal)
CPT/HCPCS: 36415; 85027; 99195; 82728

== ENCOUNTER 2024-07-08 01:13 | Outpatient (CLI) | payer MEDICARE, SELFPAY ==
--- NOTE | 2024-07-08 06:30 | DI.NM_ITS ---
APPROVED REPORT Exam: Pharmacologic Patient Location: Out-Patient Room/Bed: Stress Nurse: Amanda Pacheco RN Ordering Provider:NATALIA HAWLEY, Contact Number: [phone] BMI: 27.54 Baseline Rhythm: Sinus Bradycardia Comment: BBB, biphasic T wave Indications: [place] Medical History Medical History: BPV, depression, HTN, anemia, HLD, RBBB, alcohol abuse, GERD, pancreatitis Cardiac Medications: gabapentin, losartan, omeprazole, rosuvastatin Allergies: sulfa Cardiac Risk Factors: family hx, HTN, HLD, former smoker Previous Cardiac Procedures: none Pretest Chest Pain Characteristics: No chest pain Exercise History: Sedentary Physical Disabilities: Legs Lung Sounds: Clear to auscultation Heart Sounds: Regular Stress Test Details Test: Pharmacologic stress testing performed using 0.4 mg of regadenoson per 5 mL given IV over 10 s econds. Reason for pharmacologic stress test: physical limitation. Nuclear Acquisition: Rest Tc-99m/Stress Tc-99m 1 day Rest Isotope: Tc-99m Sestamibi. Dose: 10.0 Date: 07/08/2024 Injection Time: 0845 Stress Isotope: Tc-99m Sestamibi. Dose: 30.0 Date: 07/08/2024 Injection Time: 1002 HR Resting HR Supine: 57 bpm Max Heart Rate (APMHR): 144 bpm Target HR (85% APMHR): 122 bpm Max HR Achieved: 88 bpm % of APMHR: 61 Recovery HR: 67 bpm HR response to stress: Normal HR response to stress BP Resting BP Supine: 142/80 mmHg Max BP: 150/62 mmHg Recovery BP: 128/70 mmHg BP response to stress: Normal blood pressure response to stress. ECG Resting ECG: Sinus Bradycardia Ectopy: BBB, biphasic T wave Stress ECG: Sinus Rhythm ST Change: Nondiagnostic low heart rate Arrhythmia: BBB, biphasic T wave Recovery ECG: Sinus Rhythm Recovery ST Change: Nondiagnostic low heart rate Recovery Arrhythmia: BBB, biphasic T wave Clinical Stress Symptoms: Abdominal discomfort, Dizziness Angina Score: None Rate Pressure Product: 90530 Stress ECG Conclusion 1. Resting electrocardiogram showed right bundle branch block 2. Patient underwent testing using pharmacologic stress with regadenoson 3. Peak heart rate achieved was 67% of maximal predicted for age 4. The electrocardiographic portion of the test was nondiagnostic 5. See MPI report Stress Test Summary STAGE HR BP SpO2 Symptoms NOTES Supine 57 142/80 1 min post Lexiscan injection 85 150/62 abdominal discomfort, dizziness 3 min post Lexiscan injection 78 142/78 96 6 min post Lexiscan injection 67 128/70 95 sypmtoms resolved MPI Conclusion Myocardial perfusion is normal. There is no ischemia or evidence of prior infarction Ejection fraction is 62% with normal wall motion
--- NOTE | 2024-07-08 08:29 | DI.RAD_ITS ---
Exam(s) XR CHEST 2V PA LATERAL EXAM: XR CHEST 2V PA LATERAL CLINICAL HISTORY: dyspnea on exertion,chest pain,r06.09. TECHNIQUE: 2D digital imaging was performed. COMPARISON: CR XR CHEST 1V IN DI DEPT from 11/18/2022 FINDINGS: 2 views: Heart size is normal. The mediastinum is not widened. Suboptimal inspiration on the frontal view. There is some atelectasis/possible infiltrate left lung base. Also in the posterior basal segment ri ght lower lobe. There are no pleural effusions. No CHF.. IMPRESSION: Atelectasis-infiltrates in the lung bases. Recommend follow-up images with better inspiratory effort . DATA REPOSITORY: RADIATION DOSE DELIVERED:
[2024-07-08] MEDS: Regadenoson 0.4 MG/5 ML SYR IVP (10:02)
== END 2024-07-08 01:33 ==
LOC: DI 01:14
PROVIDERS: PCP Family Medicine; Visit Provider Internal Medicine Cardiovascular Disease
DX: R07.9 Chest pain, unspecified (principal); R06.09 Other forms of dyspnea
CPT/HCPCS: 78452; 93016; 93018; 71046; 93017; J2785

== ENCOUNTER 2024-07-11 02:29 | Outpatient (CLI) | payer MEDICARE, SELFPAY ==
--- NOTE | 2024-07-11 06:45 | DI.RAD_ITS ---
Exam(s) XR CHEST 2V PA LATERAL EXAM: XR CHEST 2V PA LATERAL CLINICAL HISTORY: reassess lungs; poor inspiration on prior films,ATELECTASIS,J98.11. TECHNIQUE: 2D digital imaging was performed. COMPARISON: CR XR CHEST 2V PA LATERAL from 07/08/2024 FINDINGS: 2 views: Heart size is normal. The mediastinum is not widened. There is atelectasis in both lung bases again noted. Possible mild infiltrate in the posterior basal segment of the right lower lobe and left parahilar region. No pleural effusions. No pneumothorax. No fractures. IMPRESSION: Bilateral platelike atelectasis in the lung bases. Possible mild infiltrate right lower lobe posteri or basal segment and the parahilar region. If clinically indicated follow-up CT scan can be performe d for added sensitivity. There are no pleural effusions. DATA REPOSITORY: RADIATION DOSE DELIVERED:
== END 2024-07-11 02:49 ==
LOC: DI 02:29
PROVIDERS: PCP Family Medicine; Visit Provider Family Medicine
DX: J98.11 Atelectasis (principal)
CPT/HCPCS: 71046

== ENCOUNTER 2024-08-01 02:33 | Outpatient (RCR) | payer MEDICARE, SELFPAY ==
[2024-08-01] MEDS: Normal Saline Flush 10 ML SYR IVP (10:53)
[2024-08-01 11:07] LABS: Abs Immature Grans 0.01 10^3/uL (0.0-0.06); Absolute Basophil Count 0.03 10^3/uL (0.0-0.2); Absolute Eosinophil Count 0.15 10^3/uL (0.0-0.7); Absolute Lymphocyte Count 2.61 10^3/uL (1.2-3.4); Absolute Neutrophil Count 3.78 10^3/uL (1.2-6.7); Basophils % 0.4 %; Eosinophils % 2.1 %; HCT 39.7 % (40.0-50.0); HGB 13.3 g/dL (13.5-17.5); Immature Grans % 0.1 %; Lymphocytes % 36.9 %; MCH 32.2 pg (27.0-33.0); MCHC 33.5 % (32.0-36.0); MCV 96 fL (80-95); MPV 9.2 fL (8.0-11.0); Monocytes % 7.1 %; Neutrophils % 53.4 %; Platelet Count 275 10^3/uL (130-400); RBC 4.13 10^6/uL (4.36-5.78); RDW 11.9 % (11.8-14.1); RDW-SD 41.4 fL; WBC 7.08 10^3/uL (4.4-10.8)
[2024-08-01 11:32] LABS: Iron 120 ug/dL (65-175); Total Iron Binding Capacity 302 ug/dL (250-450); Transferrin Sat 40 % (20-55)
[2024-08-01 11:36] LABS: ALT 22 U/L (16-63); AST 17 U/L (15-37); Albumin 3.8 g/dL (3.4-5.0); Alkaline Phosphatase 107 U/L (46-116); Anion Gap 6.8 mmol/L (3-11); BUN 16 mg/dL (7-18); CO2 29.2 mmol/L (21.0-32.0); CREATININE 1.3 mg/dL (0.70-1.30); Calcium 9.4 mg/dL (8.5-10.1); Chloride 104 mmol/L (98-107); Cholesterol 208 mg/dL (<200); Estimated GFR 56.93 (mL/min/1.73m2); Ferritin 81 ng/mL (26-388); Glucose 110 mg/dL (74-106); HDL Cholesterol 50 mg/dL (>or=40); Potassium 4.7 mmol/L (3.5-5.1); Sodium 140 mmol/L (136-145); Total Protein 7.4 g/dL (6.4-8.2); Triglyceride 479 mg/dL (<150)
[2024-08-01 11:49] LABS: LDL CHOLESTEROL 77 mg/dL (<100)
[2024-08-02 11:56] LABS: Hepatitis C Ab w Rflx HCV PCR Negative (Negative)
== END 2024-08-26 23:59 | disposition home or self-care (01) ==
LOC: INF 02:33
PROVIDERS: Internal Medicine Hematology & Oncology; PCP Family Medicine; Visit Provider Nurse Practitioner Adult Health
DX: E83.118 Other hemochromatosis; E78.5 Hyperlipidemia, unspecified
CPT/HCPCS: 36415; 80053; 80061; 83721; 86803; 82728; 83540; 83550; 85025

== ENCOUNTER 2024-08-29 01:37 | Outpatient (RCR) | payer MEDICARE, SELFPAY ==
[2024-08-29 11:05] LABS: HCT 40.6 % (40.0-50.0); HGB 13.5 g/dL (13.5-17.5); MCH 32.1 pg (27.0-33.0); MCHC 33.3 % (32.0-36.0); MCV 96 fL (80-95); MPV 9.3 fL (8.0-11.0); Platelet Count 287 10^3/uL (130-400); RBC 4.21 10^6/uL (4.36-5.78); RDW 11.8 % (11.8-14.1); RDW-SD 41.6 fL
[2024-08-29 11:36] LABS: Ferritin 81 ng/mL (26-388)
== END 2024-09-25 23:59 | disposition home or self-care (01) ==
LOC: INF 01:37
PROVIDERS: Internal Medicine Hematology & Oncology; PCP Family Medicine; Visit Provider Nurse Practitioner Adult Health
DX: E83.118 Other hemochromatosis (principal)
CPT/HCPCS: 36415; 85027; 82728

== ENCOUNTER 2024-11-08 00:29 | Outpatient (CLI) | payer MEDICARE, SELFPAY ==
--- NOTE | 2024-11-08 08:30 | DI.US_ITS ---
APPROVED REPORT EXAM: Comprehensive 2D, Doppler, and color-flow Echocardiogram Indications: Dyspnea on exertion Other Information Study Quality: Adequate Conclusion Normal left ventricular wall thickness and chamber size. Ejection fraction is 55 to 60%. Wall motion is normal diastolic function is normal for age Normal right ventricular size and function Both atria are normal in size There is no structural or hemodynamically significant valvular disease Wall motion Left Ventricle The left ventricle is normal size. Left ventricular systolic function is normal. The left ventricular ejection fraction is within the normal range. There is normal left ventricular wall thickness. There is normal LV segmental wall motion. There is no ventricular septal defect visualized. LVEF is 55-60%. Right Ventricle The right ventricle is normal size. The right ventricular systolic function is normal. Atria The left atrium size is normal. The right atrium size is normal. The interatrial septum is intact with no evidence for an atrial septal defect. Aortic Valve The aortic valve is normal in structure. Aortic valve is trileaflet. There is no aortic valvular stenosis. No aortic regurgitation is present. Mitral Valve The mitral valve is normal in structure. No evidence of mitral valve stenosis. There is no mitral valve regurgitation noted. Tricuspid Valve The tricuspid valve is normal in structure. There is no tricuspid valve stenosis. Trace tricuspid regurgitation. Pulmonic Valve The pulmonary valve is normal in structure. There is no pulmonic valvular stenosis. Trace pulmonic regurgitation. Great Vessels The aortic root is normal in size. The ascending aorta is normal in size. Aortic arch is normal in caliber. IVC is normal in size and collapses >50% with inspiration. Pericardium There is no pericardial effusion. 2D Dimensions IVSD d PLAX 1.11 cm M: 0.6-1.2 Ao Root d 3.61 cm M: 3.1 - 3.7 LVPW d PLAX 1.09 cm M: 0.6 - 1.2 Ao Asc Diam d 3.29 cm M: 2.6 - 3.4 LVID d PLAX 5.43 cm M: 4.2 - 5.8 LVDs 3.69 cm M: 2.5 - 4.0 LV EF Teichholz 59.6 % FS 32.04 % LV EDV (Teich) 143.2 mL LV ESV (Teich) 57.8 mL Stroke Vol Index (Teich) 41.47 M-Mode TAPSE 1.75 cm (M/F) >1.7 Auto EF LV EDV A4C 106.5 mL LV EDV A2C 131.2 mL LV EDV BP 118.1 mL LV ESV A4C 46.5 mL LV ESV A2C 54.7 mL LV ESV BP 50.8 mL LVEF(%) A4C 56.3 % LVEF(%) A2C 58.3 % LVEF(%) BP 57.0 % LV SV A4C 60.0 ml LV SV A2C 76.4 ml LV SV BP 67.3 ml LV CO A4C 3.6 L/min LV CO A2C 4.0 L/min LV CO BP 3.8 L/min HR A4C 60.71 BPM HR A2C 51.86 BPM LV EDV Index (BP) LA Volume LA Length A4C 5.4 cm LA Length A2C 4.9 cm LA Area A4C s 13.67 cm2 LA Area A2C s 15.21 cm2 LA Vol A4C A-L 29.29 mL LA Vol A2C A-L 39.80 mL LA Vol Biplane A-L 35.8 mL LA Vol/BSA A4C A-L LA Vol/BSA A2C A-L LA Vol/BSA BP A-L 17.4 mL/m2 LA Vol A4C MOD 26.9 mL LA Vol A2C MOD 38.3 mL LA Vol BP MOD 33.5 mL RA Volume RA Area A4C 10.3 cm2 RA ESV A4C (A-L) 17.5mL RA Vol/BSA A4C A-L RA Length A4C 5.1 cm RA ESV A4C (MOD) 16.9mL LV Diastology MV E' medial 0.084 (>0.07 m/s) MV E Vmax 0.64 (0.4-1.3 m/s) MV E/E' MED 7.55 (<14) MV A Vmax 0.60 (0.4-1.3 m/s) MV E' lateral 0.105 (>0.1 m/s) E/A Ratio 1.1 MV E/E' LAT 6.06 (<14) MV E' Average 0.095 m/s MV E/E'(average) 6.72 Aortic Valve AoV Vmax 1.28 m/s LVOT Vmax 1.06 m/s AoV Peak Grad 6.5 mmHg LVOT Peak Grad 4.5 mmHg AoV Area (Vmax) 3.34 cm2 LVOT VTI 0.242 m AoV VTI 0.290 m LVOT Mean Grad 2.6 mmHg AoV Mean Daniel. 0.90 m/s LVOT SV 97.07 mL AoV Mean Grad 3.7 mmHg LVOT Diam s 2.25 cm AoV Area (VTI) 3.35 cm2 AV Regurg Peak Gr. 6.52 mmHg Velocity Ratio 0.83 Mitral Valve MV DT 206 (160-240 msec) Pulmonary Valve PV Vmax 1.37 (0.5-1.5 m/s) RVOT Vmax 0.53 m/s PV Peak Grad 7.6 mmHg RVOT Peak Gr. 1.1 mmHg PV Mean Daniel 1.01 m/s RVOT VTI 0.118 m PV Mean Grad 4.5 mmHg RVOT Mean Gr. 0.7 mmHg
== END 2024-11-08 00:49 ==
LOC: DI 00:29
PROVIDERS: PCP Family Medicine; Visit Provider Internal Medicine Cardiovascular Disease
DX: R06.09 Other forms of dyspnea (principal)
CPT/HCPCS: 93306

== ENCOUNTER 2024-11-21 00:29 | Outpatient (CLI) | payer MEDICARE, SELFPAY ==
--- NOTE | 2024-11-21 07:40 | DI.CT_ITS ---
Exam(s) CT CHEST WO EXAM: CT CHEST WO CLINICAL HISTORY: f/u prev ct, sob,possible mild infiltrate rll TECHNIQUE: Imaging Protocol: Axial computed tomography images with coronal and sagittal reformatted images were created and reviewed. Computer aided detection (CAD) was utilized. CONTRAST MATERIAL: Intravenous: Omnipaque 350 Contrast volume:structured data ml. COMPARISON: CT,NM,TMT NM MPI REST STRESS GRP from 07/08/2024 CR XR CHEST 2V PA LATERAL from 07/08/2024 CR XR CHEST 2V PA LATERAL from 07/11/2024 FINDINGS: Pulmonary parenchyma: Mild lingular atelectasis. No ground-glass infiltrates or consolidation. No dominant measurable mass. Scattered micro nodules. Tracheobronchial tree: No bronchiectasis or mucous plugging. Mediastinum and Mindi: No dominant adenopathy or fluid collection. Pleura: No effusion. No pneumothorax. Heart: The heart is moderately dilated. No coronary artery calcifications are seen. Aorta: Thoracic aorta non-dilated. Mild atherosclerotic changes. Pulmonary arteries: No gross evidence of emboli. Upper abdomen: No acute findings. Bones: Degenerative changes in the spine. Soft tissues: Mild bilateral gynecomastia. IMPRESSION: No acute abnormality. Scattered micro nodules. For multiple solid noncalcified nodules smaller than 6 mm in diameter, no routine follow-up is recommended (grade 2B; weak recommendation, moderate-quality evidence). (Ricardo et al., 2017) RADIATION DOSE DELIVERED: 283.98mGy.cm Total DLP DATA REPOSITORY: All CT scans at this facility are submitted to the National Radiology Data Registry (NRDR) Dose Index Registry (DIR) with the [employer] ([employer]). RADIATION OPTIMIZATION: All CT scans at this facility use at least one of these dose optimization techniques: automated exposure control; mA and/or kV adjustment per patient size (includes targeted exams where dose is matched to clinical indication); or iterative reconstruction.
== END 2024-11-21 00:49 ==
PROVIDERS: PCP Family Medicine; Visit Provider Nurse Practitioner Family
DX: R06.02 Shortness of breath (principal)
CPT/HCPCS: 71250

== ENCOUNTER 2024-11-28 02:16 | Outpatient (RCR) | payer MEDICARE, SELFPAY ==
[2024-11-28 11:26] LABS: HCT 39.3 % (40.0-50.0); HGB 13.3 g/dL (13.5-17.5); MCH 32.0 pg (27.0-33.0); MCHC 33.8 % (32.0-36.0); MCV 95 fL (80-95); MPV 9.3 fL (8.0-11.0); Platelet Count 278 10^3/uL (130-400); RBC 4.16 10^6/uL (4.36-5.78); RDW 12.0 % (11.8-14.1); RDW-SD 42.0 fL; WBC 6.65 10^3/uL (4.4-10.8)
[2024-11-28 11:59] LABS: Ferritin 111 ng/mL (26-388)
== END 2024-12-26 23:59 | disposition home or self-care (01) ==
LOC: INF 02:16
PROVIDERS: PCP Family Medicine; Visit Provider Nurse Practitioner Adult Health
DX: E83.118 Other hemochromatosis (principal)
CPT/HCPCS: 36415; 85027; 99195; 82728

== ENCOUNTER 2025-01-10 10:38 | Day surgery (SDC) | payer MEDICARE, SELFPAY ==
[2025-01-10] VITALS (26 sets, daily range): BP systolic 126–208; BP diastolic 73–100; PULSE 55–76; RESP 8–22; TEMP 36.2–36.5; O2SAT 92–99; BMI 28.0
--- NOTE | 2025-01-10 10:30 | RT.EKG_ITS ---
APPROVED REPORT Exam: Resting ECG Reason for Exam: abdominal pain Patient Location: E HR:71 bpm ECG Measurements Heart Rate 71 AXIS AR 196 P 38 QRSd 155 QRS -51 QT 390 T -29 QTc 426 Conclusion Sinus rhythm...normal P axis, V-rate 60- 99 RBBB and LAFB...QRSd >120mS, axis(-40,240) ------ NO STEMI
--- NOTE | 2025-01-10 11:15 | DI.CT_ITS ---
Exam(s) CT CHEST PE ABD PELVIS W EXAM: CT CHEST PE ABD PELVIS W CLINICAL HISTORY: epigastric abdominal pain, enlarged gb on pocus. TECHNIQUE: Imaging Protocol: Axial computed tomography images with coronal and sagittal reformatted images were created and reviewed. Computer aided detection (CAD) was utilized. CONTRAST MATERIAL: Intravenous: Omnipaque 350 Contrast volume:100 ml Oral: no COMPARISON: CT CT CHEST WO from 11/21/2024 FINDINGS: CHEST: Pulmonary parenchyma: No consolidation. No dominant measurable mass. Tracheobronchial tree: No bronchiectasis. No mucous plugging.No bronchial wall thickening. Pleura: No effusion or pneumothorax. Mediastinum: Within normal limits. Pulmonary arteries: No visible emboli. Cardiovascular: The heart size is normal. No pericardial effusion. Thoracic aorta non-dilated. Bones: Unremarkable for age. No lytic or blastic lesions. No compression fractures. Soft tissues: Unremarkable. ABDOMEN and PELVIS: Liver: Normal density. No suspicious mass. Gallbladder and biliary tract: The gallbladder is distended and shows thickened wall. Small amount of pericholecystic fluid is present. No calcified stones are visible.. No biliary dilatation. Pancreas: Normal density, no abnormal calcifications or inflammatory process. Spleen: Normal. Kidneys: Normal size, contour and axis. No radiodense stones. No obstructive uropathy. No suspicious masses seen. Adrenal glands: No masses seen. Aorta: Abdominal portion non-dilated. Lymph nodes: Within normal limits. Soft tissues: Unremarkable. Bladder: Mild bladder wall thickening. Bowel: The stomach and small bowel are unremarkable. The appendix is normal. There is diverticulosis of the lower descending and sigmoid colon but no evidence of diverticulitis. Peritoneal cavity: No ascites. No focal collection. No mesenteric inflammatory response. No free air. Bones: Degenerative changes greatest at L2-3 and L5-S1. Reproductive organs: enlarged prostate which impresses on the base of the bladder. IMPRESSION: No evidence of pulmonary embolism or other acute abnormality in the chest. Abnormally distended gallbladder with thick wall and mild pericholecystic fluid, suspicious for acute cholecystitis. No biliary dilatation. RADIATION DOSE DELIVERED: 573.1mGy.cm Total DLP DATA REPOSITORY: All CT scans at this facility are submitted to the National Radiology Data Registry (NRDR) Dose Index Registry (DIR) with the [employer] (ACR). RADIATION OPTIMIZATION: All CT scans at this facility use at least one of these dose optimization techniques: automated exposure control; mA and/or kV adjustment per patient size (includes targeted exams where dose is matched to clinical indication); or iterative reconstruction.
[2025-01-10 11:18] LABS: Abs Immature Grans 0.01 10^3/uL (0.0-0.06); HCT 35.6 % (40.0-50.0); HGB 11.8 g/dL (13.5-17.5); Immature Grans % 0.2 %; MCH 31.6 pg (27.0-33.0); MCHC 33.1 % (32.0-36.0); MCV 95 fL (80-95); MPV 9.4 fL (8.0-11.0); Platelet Count 277 10^3/uL (130-400); RBC 3.73 10^6/uL (4.36-5.78); RDW 12.4 % (11.8-14.1); RDW-SD 43.0 fL; WBC 6.59 10^3/uL (4.4-10.8)
[2025-01-10 11:35] LABS: ALT 32 U/L (16-63); AST 22 U/L (15-37); Albumin 3.6 g/dL (3.4-5.0); Alkaline Phosphatase 148 U/L (46-116); Anion Gap 8.4 mmol/L (3-11); BUN 17 mg/dL (7-18); Bilirubin, Total 0.4 mg/dL (0.2-1.0); CO2 28.6 mmol/L (21.0-32.0); Calcium 9.4 mg/dL (8.5-10.1); Chloride 104 mmol/L (98-107); Estimated GFR 69.14 (mL/min/1.73m2); Glucose 100 mg/dL (74-106); Lipase 22 U/L (<78); Magnesium 2.0 mg/dL (1.8-2.4); Potassium 4.4 mmol/L (3.5-5.1); Sodium 141 mmol/L (136-145); Total Protein 7.4 g/dL (6.4-8.2); Troponin I 11 ng/L (<or=76)
[2025-01-10] MEDS: Normal Saline - Diluent 50 ML VIAL IJ (11:56)
[2025-01-10] MEDS: Omnipaque 350 MG/ML 100 ML BTL IJ (11:57)
[2025-01-10] MEDS: Normal Saline Flush 10 ML SYR IVP (12:08)
--- NOTE | 2025-01-10 12:39 | W.SURGCON ---
Date of service: 01/10/25 Time of Service: 12:50 Assessment and Plan Assessment and plan (1) Acute cholecystitis: Status: Acute Assessment and plan: 79-year-old man with acute cholecystitis clinically and radiographically. My suspicion is that this is probably what has been his underlying issue relating to shortness of breath as well although there is no definitive way to prove that. We had a detailed discussion about the gallbladder and gallbladder disease and gallbladder surgery. It does look like he had an episode of pancreatitis a number of years ago and that may have been related to his gallbladder as well. I recommended definitive management with laparoscopic cholecystectomy considering the findings and my examination and his story. He is in agreement with the indications, the possible risks but also the likely benefits of surgery and wants to proceed. Overall plan: Laparoscopic cholecystectomy History of Present Illness Narrative: 79-year-old man has been having some pain underneath his right rib cage for the last week or so. He thinks he has been having some ongoing issues for couple of months. Mostly what surrounds feeling short of breath but his workup has thus far been normal. He had an echo done a couple months ago that showed normal ejection fraction. He has not really been having any chest pain it is just feeling like he cannot take deep breaths. Today he got a CTA scan in the ER because of the description of his pain and this revealed a dilated gallbladder with pericholecystic fluid and wall thickening. He does not have a leukocytosis and his vital signs are otherwise within acceptable/usual limits. He has never had intra-abdominal surgery. 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) Benign positional vertigo (Acute) worse on left Otalgia, left ear (Acute) Wears hearing aid in both ears (Acute) Sensorineural hearing loss, bilateral (Acute) Giardia (Acute) Diverticula of colon (Acute) Bile reflux gastritis (Acute) History of colon polyps (Acute) Elevated ferritin (Acute) Skin lesion (Acute) Fatigue (Acute) Neck pain on left side (Acute) Conductive hearing loss, external ear (Acute) Impacted cerumen, bilateral (Acute) Eye pain (Acute) Depression (Chronic) Hearing loss (Acute) Tinnitus (Acute) Hyperglycemia (Acute) 09/2021 [id number] Essential hypertension (Acute) BPH w urinary obs/LUTS (Acute) 09/2021-by exam Anemia (Chronic) 09/2021-mild , resolved Neck pain (Acute) [id number] by [facility], status post nerve block Rosacea (Acute) Hyperlipidemia (Acute) On rosuvastatin-tolerates low-dose, muscle cramping at doses higher than 10 mg in the past Gastroesophageal reflux disease with esophagitis (Acute) Essential hypertension (Acute 03/19/13) Contact dermatitis (Acute) Chest pain (Acute) 2009 NEGATIVE MPI 2013 neg. 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 DANIEL Diverticulosis of colon without diverticulitis Surgical History History of esophagogastroduodenoscopy Status post laminectomy LAMINECTOMY (~1989) EGD - MAC (11/18/22) 2016-negative Colonoscopy - MAC (11/18/22) Last Colonoscopy 11/08/2017 Family History Mother Diabetes Essential hypertension Heart disease Stroke Father Diabetes Neoplasm STOMACH Sister Stroke Brother Neoplasm COLON Sister Heart disease Myocardial infarction STENTS Sister Alzheimer disease Heart disease Sister CD (Crohn's disease) Brother Suicide Brother Alzheimer disease Stroke Brother Liver disease Alcohol abuse Social History (Updated 06/14/24 @ 10:37 by Chika Sanchez) Smoking/Tobacco Use Status: Former Tobacco Use tobacco type: smokeless tobacco Tobacco: How many years used: 30 Smokeless tobacco user: snuff Second Hand Exposure: Yes Smoking risk assessment performed?: Yes Alcohol Intake: current Alcohol Intake frequency: a few times a month Alcohol type: beer Previous attempts at quittin Drug use: Never Substance use type: does not use Counseling given: No Adopted: No Caregiver/Support person: No Foster care: No Household members: spouse and family Housing: house Number of Children: 3 number of grandchildren: 5 Communication Needs: Hard of Hearing and Corrective Lenses Education Level: high school Do you need help understanding health information?: Rarely current occupation: previously construction, 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 Pets and animals: Yes Pets and animals: cat(s) and dog(s) Sexually active: Yes Do you think of yourself as: straight/heterosexual Current gender identity: male What is your relationship status?: How often do you talk on the phone with friends or family?: once per week Do you belong to any clubs or organized social groups?: no Panel score (0-1 are the most socially isolated patients): 1 What type of physical activity do you participate in: walking Duration: 15-30 minutes/day Frequency: 3-4 times per week Bryanna/Methodist: Non jainism Special bryanna needs: No Agree to transfusion: Yes Seatbelt use: always 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 Good insight and understanding into condition. Chest: Non-labored breathing, no wheezing, no visible shortness of breath. Heart: Regular Abdomen: Soft, nondistended, no significant tenderness to gentle palpation. Certainly no peritonitis. However a Hughes sign is positive. Results Last Vital Signs Temp 97.6 F 01/10/25 10:43 Pulse 73 01/10/25 10:43 Resp 22 01/10/25 10:43 BP 135/73 01/10/25 10:43 Pulse Ox 95 01/10/25 10:43 Labs 01/10/25 10:58 01/10/25 10:58 Labs: Laboratory Results - last 24 hr 01/10/25 01/10/25 10:58 11:00 WBC 6.59 RBC 3.73 L Hgb 11.8 L Hct 35.6 L MCV 95 MCH 31.6 MCHC 33.1 RDW 12.4 Plt Count 277 MPV 9.4 Immature Gran % 0.2 Neutrophils % 42.8 Lymphocytes % 45.8 Monocytes % 9.1 Eosinophils % 1.8 Basophils % 0.3 Nucleated RBC % 0.0 Absolute Neutrophils 2.82 Absolute Lymphocytes 3.02 Absolute Monocytes 0.60 Absolute Eosinophils 0.12 Absolute Basophils 0.02 Sodium 141 Potassium 4.4 Chloride 104 Carbon Dioxide 28.6 Anion Gap 8.4 BUN 17 Creatinine 1.1 Est GFR (CKD-EPI 2020) 69.14 Glucose 100 Calcium 9.4 Magnesium 2.0 Total Bilirubin 0.4 AST 22 ALT 32 Alkaline Phosphatase 148 H Troponin I 11 Total Protein 7.4 Albumin 3.6 Lipase 22 ABO/Rh A Positive Antibody Screen NEGATIVE
[2025-01-10] MEDS: Lactated Ringers 1,000 ML 125 ML IV (12:46)
--- NOTE | 2025-01-10 12:48 | ED.GENADUL_ITS ---
Discharge Plan Disposition Patient Disposition: Admit to [facility] Condition: Serious Discharge Details Clinical Impression: Acute cholecystitis Primary Care Provider: Mateusz Cody ED Provider: Justin Evans Home Meds and New Rx's Prescriptions: No Action meclizine 12.5 mg tablet 12.5 mg PO BID-QID PRN (Reason: dizziness) Qty: 60 0RF gabapentin 100 mg capsule 200 mg PO TID Qty: 180 5RF ibuprofen [Advil] 200 mg tablet 400 mg PO Q6H PRN losartan 25 mg tablet 25 mg PO DAILY Qty: 90 3RF omeprazole 40 mg capsule,delayed release(DR/EC) 40 mg PO DAILY Qty: 90 3RF rosuvastatin [Crestor] 10 mg tablet 10 mg PO HS Qty: 90 3RF multivitamin Tablet 1 tab PO DAILY HPI General Mode of arrival: ambulatory . Date/Time Provider Initiated Documentation: 01/10/25 10:55 . Limitations to Documentation: no limitations . Information obtained by: patient . HPI Narrative: HISTORY OF PRESENT ILLNESS 79-year-old male with epigastric pain and dyspnea. Abdominal pain began one week ago, progressively worsening. Describes as pressure in mid-central epigastric region, non-radiating. Decreased appetite, occasional full meals, no nausea or vomiting, feeling of fullness post-meal. Regular bowel movements, no hematochezia or melena, no swelling or rashes. Dyspnea for several months, worsens when supine. Difficulty with deep breaths. Never smoked. PAST SURGICAL HISTORY: Recent colonoscopy, normal results. Related Data Home Medications ?Medication ?Instructions ?Recorded ?Confirmed ibuprofen 200 mg tablet (Advil) 400 mg PO Q6H PRN 06/2901/10/25 meclizine 12.5 mg tablet 12.5 mg PO BID-QID PRN dizzi ness 07/31/23 01/10/25 #60 tabs multivitamin 1 tab PO DAILY 01/15/2412/27 Held on 01/10/25. Instructions: Pt Stopped/Never Started losartan 25 mg tablet 25 mg PO DAILY #90 tab-caps 06/13/24 01/10/25 omeprazole 40 mg capsule,delayed 40 mg PO DAILY #90 ta b-caps 06/13/24 01/10/25 release rosuvastatin 10 mg tablet (Crestor) 10 mg PO HS #90 ta bs 06/13/24 01/10/25 gabapentin 100 mg capsule 200 mg (2 x 100 mg) PO TID # 180 11/15/24 01/10/25 caps Previous Rx's ?Medication ?Instructions ?Recorded meclizine 12.5 mg tablet 12.5 mg PO BID-QID PRN dizzi ness 07/31/23 #60 tabs losartan 25 mg tablet 25 mg PO DAILY #90 tab-caps 06/13/24 omeprazole 40 mg capsule,delayed 40 mg PO DAILY #90 ta b-caps 06/13/24 release rosuvastatin 10 mg tablet (Crestor) 10 mg PO HS #90 ta bs 06/13/24 gabapentin 100 mg capsule 200 mg (2 x 100 mg) PO TID # 180 11/15/24 caps Allergies Allergy/AdvReac Type Severity Reaction Status Date / Time Sulfa (Sulfonamide Allergy Hives Verified 01/10/25 10:12 Antibiotics) General Stated Complaint: SOB NARGIS: 3 Review of Systems All systems reviewed & are unremarkable except as noted in HPI and below Constitutional Constitutional: Denies fever(s) Exam Const General: cooperative HENRI Mouth: moist mucous membranes Eyes Conjunctivae: normal conjunctivae Sclera: normal sclerae EOM: EOM intact bilaterally Neck Neck: trachea midline and supple Resp Effort & Inspection: tachypneic Auscultation: clear to auscultation bilaterally, no rales, no rhonchi and no wheezes Cardio Rate: regular rate and not tachycardic Rhythm: regular rhythm GI Palpation: soft, not firm, no guarding, no masses, not rigid and tender in the epigastrum and in the RUQ; with no rebound tenderness Skin General skin exam: no rashes or lesions noted Neuro General: patient alert, patient awake, patient oriented x3 and tone normal Extrem General: no edema Course Vital Signs Vital signs: Vital Signs Temperature 36.4 C 01/10/25 10:43 Pulse 73 01/10/25 10:43 Respiratory Rate 22 01/10/25 10:43 Blood Pressure 135/73 01/10/25 10:43 Pulse Oximetry 95 01/10/25 10:43 Temperature 36.4 C 01/10/25 10:43 Temperature Source Oral 01/10/25 10:43 Pulse 73 01/10/25 10:43 Respiratory Rate 22 01/10/25 10:43 Respiratory Effort Normal, Non-Labored, Short of Breath 01/10/25 11:10 Respiratory Depth Normal 01/10/25 11:10 Respiratory Pattern Normal 01/10/25 11:10 Blood Pressure 135/73 01/10/25 10:43 Blood Pressure Position Sitting 01/10/25 10:43 Pulse Oximetry 95 01/10/25 10:43 Oxygen Delivery Method Room Air 01/10/25 10:43 Oxygen Flow Rate 0 01/10/25 10:43 Lab/Test Results Lab/Test Results: Laboratory Tests Range/Units 01/10/25 01/10/25 10:58 11:00 WBC (4.4-10.8) 10^3/uL 6.59 RBC (4.36-5.78) 10^6/uL 3.73 L Hgb (13.5-17.5) g/dL 11.8 L Hct (40.0-50.0) % 35.6 L MCV (80-95) fL 95 MCH (27.0-33.0) pg 31.6 MCHC (32.0-36.0) % 33.1 RDW (11.8-14.1) % 12.4 Plt Count (130-400) 10^3/uL 277 MPV (8.0-11.0) fL 9.4 Immature Gran % % 0.2 Neutrophils % % 42.8 Lymphocytes % % 45.8 Monocytes % % 9.1 Eosinophils % % 1.8 Basophils % % 0.3 Nucleated RBC % (0.0-0.3) % 0.0 Absolute Neutrophils (1.2-6.7) 10^3/uL 2.82 Absolute Lymphocytes (1.2-3.4) 10^3/uL 3.02 Absolute Monocytes (0.1-0.8) 10^3/uL 0.60 Absolute Eosinophils (0.0-0.7) 10^3/uL 0.12 Absolute Basophils (0.0-0.2) 10^3/uL 0.02 Sodium (136-145) mmol/L 141 Potassium (3.5-5.1) mmol/L 4.4 Chloride (98-107) mmol/L 104 Carbon Dioxide (21.0-32.0) mmol/L 28.6 Anion Gap (3-11) mmol/L 8.4 BUN (7-18) mg/dL 17 Creatinine (0.70-1.30) mg/dL 1.1 Est GFR (CKD-EPI 2020) (mL/min/1.73m2) 69.14 Glucose (74-106) mg/dL 100 Calcium (8.5-10.1) mg/dL 9.4 Magnesium (1.8-2.4) mg/dL 2.0 Total Bilirubin (0.2-1.0) mg/dL 0.4 AST (15-37) U/L 22 ALT (16-63) U/L 32 Alkaline Phosphatase (46-116) U/L 148 H Troponin I (<or=76) ng/L 11 Total Protein (6.4-8.2) g/dL 7.4 Albumin (3.4-5.0) g/dL 3.6 Lipase (<78) U/L 22 ABO/Rh A Positive Antibody Screen NEGATIVE Medical Decision Making ASSESSMENT AND PLAN Initial Assessment: 79-year-old male with epigastric pain and dyspnea. Differential Diagnosis: - AAA with rupture: Obtain ultrasound and CTA. - Mass: Considered. - Cholecystitis - Pancreatitis: Considered. ED Course: - POCUS: Enlarged gallbladder with thickened wall, positive sonographic Hughes's. - CT chest, abdomen, pelvis: Acute cholecystitis. - Patient seen by Dr. Lares, general surgeon on-call, will plan to take the patient to the operating room. Recommends Zosyn and IV. Final Assessment: POCUS: Enlarged gallbladder with thickened wall, positive sonographic Hughes's. CT: Acute cholecystitis. General surgery to evaluate. Clinical Impression: - Acute cholecystitis Disposition: - Admit to general surgery for evaluation and management of acute cholecystitis. This document was written with the assistance of MURPHY Caraballo. The patient consented to its use. Lab Data Lab results reviewed: Yes I reviewed the patient's lab results. Labs: Laboratory Tests Range/Units 01/10/25 01/10/25 10:58 11:00 WBC (4.4-10.8) 10^3/uL 6.59 RBC (4.36-5.78) 10^6/uL 3.73 L Hgb (13.5-17.5) g/dL 11.8 L Hct (40.0-50.0) % 35.6 L MCV (80-95) fL 95 MCH (27.0-33.0) pg 31.6 MCHC (32.0-36.0) % 33.1 RDW (11.8-14.1) % 12.4 Plt Count (130-400) 10^3/uL 277 MPV (8.0-11.0) fL 9.4 Immature Gran % % 0.2 Neutrophils % % 42.8 Lymphocytes % % 45.8 Monocytes % % 9.1 Eosinophils % % 1.8 Basophils % % 0.3 Nucleated RBC % (0.0-0.3) % 0.0 Absolute Neutrophils (1.2-6.7) 10^3/uL 2.82 Absolute Lymphocytes (1.2-3.4) 10^3/uL 3.02 Absolute Monocytes (0.1-0.8) 10^3/uL 0.60 Absolute Eosinophils (0.0-0.7) 10^3/uL 0.12 Absolute Basophils (0.0-0.2) 10^3/uL 0.02 Sodium (136-145) mmol/L 141 Potassium (3.5-5.1) mmol/L 4.4 Chloride (98-107) mmol/L 104 Carbon Dioxide (21.0-32.0) mmol/L 28.6 Anion Gap (3-11) mmol/L 8.4 BUN (7-18) mg/dL 17 Creatinine (0.70-1.30) mg/dL 1.1 Est GFR (CKD-EPI 2020) (mL/min/1.73m2) 69.14 Glucose (74-106) mg/dL 100 Calcium (8.5-10.1) mg/dL 9.4 Magnesium (1.8-2.4) mg/dL 2.0 Total Bilirubin (0.2-1.0) mg/dL 0.4 AST (15-37) U/L 22 ALT (16-63) U/L 32 Alkaline Phosphatase (46-116) U/L 148 H Troponin I (<or=76) ng/L 11 Total Protein (6.4-8.2) g/dL 7.4 Albumin (3.4-5.0) g/dL 3.6 Lipase (<78) U/L 22 ABO/Rh A Positive Antibody Screen NEGATIVE 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) Benign positional vertigo (Acute) worse on left Otalgia, left ear (Acute) Wears hearing aid in both ears (Acute) Sensorineural hearing loss, bilateral (Acute) Giardia (Acute) Diverticula of colon (Acute) Bile reflux gastritis (Acute) History of colon polyps (Acute) Elevated ferritin (Acute) Skin lesion (Acute) Fatigue (Acute) Neck pain on left side (Acute) Conductive hearing loss, external ear (Acute) Impacted cerumen, bilateral (Acute) Eye pain (Acute) Depression (Chronic) Hearing loss (Acute) Tinnitus (Acute) Hyperglycemia (Acute) 09/2021 FBS-108 Essential hypertension (Acute) BPH w urinary obs/LUTS (Acute) 09/2021-by exam Anemia (Chronic) 09/2021-mild , resolved Neck pain (Acute) [id number] by [facility], status post nerve block Rosacea (Acute) Hyperlipidemia (Acute) On rosuvastatin-tolerates low-dose, muscle cramping at doses higher than 10 mg in the past Gastroesophageal reflux disease with esophagitis (Acute) Essential hypertension (Acute 03/19/13) Contact dermatitis (Acute) Chest pain (Acute) 2009 NEGATIVE MPI 2013 neg. 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 DANIEL Diverticulosis of colon without diverticulitis Surgical History History of esophagogastroduodenoscopy Status post laminectomy LAMINECTOMY (~1989) EGD - MAC (11/18/22) 2016-negative Colonoscopy - MAC (11/18/22) Last Colonoscopy 11/08/2017 Family History Mother Diabetes Essential hypertension Heart disease Stroke Father Diabetes Neoplasm STOMACH Sister Stroke Brother Neoplasm COLON Sister Heart disease Myocardial infarction STENTS Sister Alzheimer disease Heart disease Sister CD (Crohn's disease) Brother Suicide Brother Alzheimer disease Stroke Brother Liver disease Alcohol abuse Social History Smoking/Tobacco Use Status: Former Tobacco Use tobacco type: smokeless tobacco Tobacco: How many years used: 30 Smokeless tobacco user: snuff Second Hand Exposure: Yes Smoking risk assessment performed?: Yes Alcohol Intake: current Alcohol Intake frequency: a few times a month Alcohol type: beer Previous attempts at quittin Drug use: Never Substance use type: does not use Counseling given: No Adopted: No Caregiver/Support person: No Foster care: No Household members: spouse and family Housing: house Number of Children: 3 number of grandchildren: 5 Communication Needs: Hard of Hearing and Corrective Lenses Education Level: high school Do you need help understanding health information?: Rarely current occupation: previously construction, 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 Pets and animals: Yes Pets and animals: cat(s) and dog(s) Sexually active: Yes Do you think of yourself as: straight/heterosexual Current gender identity: male What is your relationship status?: How often do you talk on the phone with friends or family?: once per week Do you belong to any clubs or organized social groups?: no Panel score (0-1 are the most socially isolated patients): 1 What type of physical activity do you participate in: walking Duration: 15-30 minutes/day Frequency: 3-4 times per week Bryanna/Restoration: Non worship Special bryanna needs: No Agree to transfusion: Yes Seatbelt use: always 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 Working smoke detector in home: Yes Carbon monox detector in home: Yes Firearms in home: No Do you feel safe at home: Yes Do you feel safe in your relationship?: Yes Victim of physical abuse: No Victim of emotional abuse: No Victim of sexual abuse: No POCUS Exam (ED) Limited Gallbladder Exam DATE OF EXAM: 01/10/25 TIME OF EXAM: 12:00 PROVIDER THAT PERFORMED THE STUDY: Justin Evans IS THIS A REPEAT EXAM DURING THIS ENCOUNTER: No REASON FOR VISIT: Abdominal pain VISUALIZED STRUCTURES: Gallbladder and Gallbladder wall PERTINENT FINDINGS/IMPRESSION: Cholecystitis and Thickened gallbladder wall Exam complete
[2025-01-10] MEDS: PIPERACILLIN/TAZO 4.5 GM in Normal Saline 100 ML IVPB (13:10)
--- NOTE | 2025-01-10 14:34 | ANES.PREOP_ITS ---
General Info Date of Service Date Performed: 01/10/25 Height: 5 ft 9 in Weight: 86.183 kg Body Mass Index (BMI): 28.0 Surgical Procedure: Operation Date: 01/10/25 14:10 Proposed Procedure Side Surgeon p Cholecystectomy Laparoscopic João Shine MD Actual Procedure Side Surgeon p Cholecystectomy Laparoscopic Not Applicable João Shine MD Pre-Op Diagnosis Post-Op Diagnosis Acute cholecystitis Acute cholecystitis Meds Allergies and Home Medications Allergies Allergy/AdvReac Type Severity Reaction Status Date / Time Sulfa (Sulfonamide Allergy Hives Verified 01/10/25 10:12 Antibiotics) Home Medication ?Medication ?Instructions ?Recorded ibuprofen 200 mg tablet (Advil) 400 mg PO Q6H PRN 06/29 01/16 meclizine 12.5 mg tablet 12.5 mg PO BID-QID PRN dizzi ness 07/31/23 #60 tabs multivitamin 1 tab PO DAILY 01/15/24 Held on 01/10/25. Instructions: Pt Stopped/Never Started losartan 25 mg tablet 25 mg PO DAILY #90 tab-caps 06/13/24 omeprazole 40 mg capsule,delayed 40 mg PO DAILY #90 ta b-caps 06/13/24 release rosuvastatin 10 mg tablet (Crestor) 10 mg PO HS #90 ta bs 06/13/24 gabapentin 100 mg capsule 200 mg (2 x 100 mg) PO TID # 180 11/15/24 caps Current Visit Medications: Current Medications Generic Name Dose Route Start Last Admin Trade Name Freq PRN Reason Stop Dose Admin Ringer's Solution 1,000 mls @ 125 mls/hr 01/10/25 12:45 01/10/25 12:46 IV 125 mls/hr INFUSION NAVEEN Administration IV Miscellaneous Supplies 1 each 01/10/25 11:15 Iv Access-Emergency Dept IV DIRECTED NAVEEN Iohexol 100 ml 01/10/25 12:00 01/10/25 11:57 Omnipaque 350 Mg/Ml 100 Ml Btl IJ 02/09/25 23:59 100 ml DIRECTED NAVEEN Administration Sodium Chloride 0 ml 01/10/25 11:03 Normal Saline Flush 10 Ml Syr IVP PRN PRN Sodium Chloride 0 ml 01/10/25 20:00 Normal Saline Flush 10 Ml Syr IVP BID NAVEEN Sodium Chloride 0 ml 01/10/25 11:03 Normal Saline 10 Ml Vial IJ DIRECTED PRN Sodium Chloride 0 ml 01/10/25 11:55 01/10/25 12:08 Normal Saline Flush 10 Ml Syr IVP 10 ml PRN PRN Administration Sodium Chloride 50 ml 01/10/25 12:00 Normal Saline - Diluent 50 Ml Vial IJ DIRECTED NAVEEN Sodium Chloride 50 ml 01/10/25 12:00 01/10/25 11:56 Normal Saline - Diluent 50 Ml Vial IJ 50 ml .FOR DI USE NAVEEN Administration PFSH Active Problems Active Problems: Problem Status Onset Code Acute cholecystitis Acute K81.0 Impairment of speech discrimination Acute H93.299 Asymmetrical sensorineural hearing loss Acute H90.3 Atelectasis Acute J98.11 [place] (dyspnea on exertion) Acute R06.09 Pain of right middle finger Acute M79.644 Right shoulder pain Acute M25.511 Tinnitus, right Acute H93.11 Hemochromatosis associated with compound heterozygous mutation in HFE gene Acute E83.110 Benign positional vertigo Acute H81.10 Otalgia, left ear Acute H92.02 Wears hearing aid in both ears Acute Z97.4 Sensorineural hearing loss, bilateral Acute H90.3 Giardia Acute A07.1 Diverticula of colon Acute K57.30 Bile reflux gastritis Acute K29.60 History of colon polyps Acute Z86.010 Elevated ferritin Acute R79.89 Skin lesion Acute L98.9 Fatigue Acute R53.83 Neck pain on left side Acute M54.2 Conductive hearing loss, external ear Acute H90.2 Impacted cerumen, bilateral Acute H61.23 Eye pain Acute H57.10 Depression Chronic F32.A Hearing loss Acute H91.90 Tinnitus Acute H93.19 Hyperglycemia Acute R73.9 Essential hypertension Acute I10 BPH w urinary obs/LUTS Acute N40.1, N13.8 Anemia Chronic D64.9 Neck pain Acute M54.2 Rosacea Acute L71.9 Hyperlipidemia Acute E78.5 Gastroesophageal reflux disease with esophagitis Acute K21.0 Essential hypertension Acute 03/19/13 I10 Contact dermatitis Acute L25.9 Chest pain Acute R07.9 Bundle branch block Acute 04/27/05 I45.4 Alcohol abuse Acute 07/19/12 F10.10 Abdominal pain, unspecified site Acute 07/13/12 R10.9 Medical History Medical History Adenomatous colon polyp Family history of colon cancer in father and Brother Screening for colon cancer Acute pancreatitis (07/03/13) 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 DANIEL Diverticulosis of colon without diverticulitis Surgical History Surgical History History of esophagogastroduodenoscopy Status post laminectomy LAMINECTOMY (~1989) EGD - MAC (11/18/22) 2016-negative Colonoscopy - MAC (11/18/22) Last Colonoscopy 11/08/2017 Tobacco Smoking/Tobacco Use Status: Former Tobacco Use Smokeless tobacco user: snuff Passive smoking exposure: No Second hand exposure: Yes Alcohol Alcohol Intake: current Alcohol intake frequency: a few times a month Alcohol type: beer Substance Use Substance use: Never Substance use type: does not use Vital Signs and Lab Results Vital Signs Most Recent Vital Signs in EMR: Most Recent Vital Signs Temp Pulse Resp BP Pulse Ox 36.4 C 73 16 178/93 H 95 01/10/25 10:43 01/10/25 12:50 01/10/25 12:50 01/10/25 12:50 01/10/25 12:50 Point of Care Results Point of Care Results: Finger Stick Blood Glucose 85 01/10/25 14:16 Lab Results 01/10/25 10:58 01/10/25 10:58 Blood Type / Crossmatch: 2 Antibody Screen NEGATIVE Today Complete Blood Count: 2 WBC, (4.4-10.8) 6.59 10^3/uL Today, 10:58 RBC, (4.36-5.78) 3.73 10^6/uL L Today, 10:58 Hgb, (13.5-17.5) 11.8 g/dL L Today, 10:58 Hct, (40.0-50.0) 35.6 % L Today, 10:58 Plt Count, (130-400) 277 10^3/uL Today, 10:58 Complete Metabolic Panel: 2 Sodium, (136-145) 141 mmol/L Today, 10:58 Potassium, (3.5-5.1) 4.4 mmol/L Today, 10:58 Chloride, (98-107) 104 mmol/L Today, 10:58 Carbon Dioxide, (21.0-32.0) 28.6 mmol/L Today, 10:58 BUN, (7-18) 17 mg/dL Today, 10:58 Creatinine, (0.70-1.30) 1.1 mg/dL Today, 10:58 Est GFR (CKD-EPI 2020), (mL/min/1.73m2) 69.14 Today, 10:58 Magnesium, (1.8-2.4) 2.0 mg/dL Today, 10:58 Calcium, (8.5-10.1) 9.4 mg/dL Today, 10:58 Albumin, (3.4-5.0) 3.6 g/dL Today, 10:58 Glucose, (74-106) 100 mg/dL Today, 10:58 Liver Function Panel: 2 ALT, (16-63) 32 U/L Today, 10:58 AST, (15-37) 22 U/L Today, 10:58 Cardiac Panel: 2 Troponin I, (<or=76) 11 ng/L Today Pancreas Panel: 2 Lipase, (<78) 22 U/L Today, 10:58 Imaging and Studies Imaging and Studies Study information below may be from another EMR and interpreted by another provider. Please see original notes in EMR for more complete details. EKG Summary: 01/10/25: Exam: Resting ECG Reason for Exam: abdominal pain Patient Location: E HR:71 bpm ECG Measurements Heart Rate 71 AXIS [place] 196 P 38 QRSd 155 QRS -51 QT 390 T-29 QTc 426 Conclusion Sinus rhythm...normal P axis, V-rate 60- 99 RBBB and LAFB...QRSd >120mS, axis(-40,240) Stress Test Summary: 07/08/24: Clinical Stress Symptoms: Abdominal discomfort, Dizziness Angina Score: None Rate Pressure Product: [id number] Stress ECG Conclusion 1. Resting electrocardiogram showed right bundle branch block 2. Patient underwent testing using pharmacologic stress with regadenoson 3. Peak heart rate achieved was 67% of maximal predicted for age 4. The electrocardiographic portion of the test was nondiagnostic 5. See MPI report Echocardiogram Summary: 11/08/24: Conclusion Normal left ventricular wall thickness and chamber size. Ejection fraction is 55 to 60%. Wall motion is normal diastolic function is normal for age Normal right ventricular size and function Both atria are normal in size There is no structural or hemodynamically significant valvular disease Wall motion Left Ventricle The left ventricle is normal size. Left ventricular systolic function is normal. The left ventricular ejection fraction is within the normal range. There is normal left ventricular wall thickness. There is normal LV segmental wall motion. There is no ventricular septal defect visualized. LVEF is 55-60%. Right Ventricle The right ventricle is normal size. The right ventricular systolic function is normal. Atria The left atrium size is normal. The right atrium size is normal. The interatrial septum is intact with no evidence for an atrial septal defect. Aortic Valve The aortic valve is normal in structure. Aortic valve is trileaflet. There is no aortic valvular stenosis. No aortic regurgitation is present. Mitral Valve The mitral valve is normal in structure. No evidence of mitral valve stenosis. There is no mitral valve regurgitation noted. Tricuspid Valve The tricuspid valve is normal in structure. There is no tricuspid valve stenosis. Trace tricuspid regurgitation. Pulmonic Valve The pulmonary valve is normal in structure. There is no pulmonic valvular stenosis. Trace pulmonic regurgitation. Great Vessels The aortic root is normal in size. The ascending aorta is normal in size. Aortic arch is normal in caliber. IVC is normal in size and collapses >50% with inspiration. Pericardium There is no pericardial effusion. Pulmonary Function Summary: 05/06/19: INTERPRETATION SPIROMETRY: Spirometry shows no evidence of obstructive airways disease. No bronchodilator response. LUNG VOLUMES: Lung volumes show no evidence of restriction. DIFFUSION CAPACITY: Normal. AIRWAY RESISTANCE: Normal. IMPRESSION: Normal pulmonary function study. Clinical correlation recommended. Anesthesia Assessment and Plan Anesthesia History Personal History: No History of Anesthesia Complications Family History: No Family History of Anesthesia Complications Exercise Tolerance Exercise Tolerance: Metabolic Equivalents>4 Pertinent Negatives Pertinent Negatives: No Symptoms of GERD Cardiac & Pulmonary Exam Cardiac Exam: Normal S1/S2 Heart Sounds Pulmonary Exam: Clear Bilateral Breath Sounds Implantable Cardiac Device Does patient have a Pacemaker or an ICD?: No Airway Exam Known Difficult Airway: No Mallampati Class: 2 Mouth Opening: Normal (> 3cm) Thyromental Distance: Greater than 3 cm Neck Range of Motion: Full ROM Neck Circumference: Normal Teeth Condition: Normal Dentition ASA Classification ASA Score: ASA 2 Emergency Case?: Yes NPO Status NPO Status: NPO Clears >2 hours, Solids >8 hours Anesthesia Plan Resuscitation Status: Full Code Anesthesia Technique: General Anesthesia Airway Planned: Endotracheal Tube Monitors Used: Standard Monitors and SedLine
[2025-01-10] MEDS: Heparin 5,000 UNITS/ML VIAL 5000 UNITS SC (15:00)
[2025-01-10] MEDS: Bupivacaine 0.25% Pres-Free 10 ML VIAL (15:17)
[2025-01-10] MEDS: Bupivacaine 0.25% Pres-Free 30 ML VIAL (15:18)
[2025-01-10] MEDS: Bupivacaine LIPOSOME/PF 133 MG/10 ML VIAL IJ (15:18)
[2025-01-10] MEDS: Normal Saline 20 ML VIAL (15:19)
--- NOTE | 2025-01-10 15:45 | GB_PTH ---
PATIENT: Mihir Kelly LOC: [facility] U#:[id number] AGE/SX: 79/M ROOM: RE01/10/[address]: João Shine : 1945 BED: DIS: 01/10/2025 SPEC #: [id number] RECD: 01/10/25 16:31 STATUS: URBAN RE #: [id number] RICHELLE: 01/10/25 15:[address]: João Shine DEPT: Surgical Specimen RECD BY: Kayla Tabor ENTERED: 01/10/25 16:32 SP TYPE: GB OTHR DR: Mateusz Cody MD Tissues: 1 - GALLBLADDER Procedures: GROSS AND MICRO LEVEL 3 Comments: [id number]
--- NOTE | 2025-01-10 15:54 | W.PM.OP ---
Operative Note Operative Note Refer to Anesthesia Record Procedure Description: Procedures performed: 1. Laparoscopic cholecystectomy 2. Bilateral Laparoscopic TAP block Pre-op diagnosis: Acute Cholecystitis Postoperative diagnosis: Same Surgeon: Andre Shine Anesthesia: Dayan Steam Meter Reader: Dana Indication for procedure: 79 yo man with acute RUQ pain in radiographic signs of cholecystitis FINDINGS: inflamed GB with pericholecystic fluid in the cystic place and between liver and GB. Normal biliary anatomy. Specimens: 1. Gallbladder Complications: None Blood loss: 20 cc Urine output: Not measured Implants/drains: None Procedure in detail: The patient gave written consent and was in agreement with the indications, the likely benefits as well as the potential risks of surgery. He was taken back to the operating room where anesthesia was administered and was tolerated well. We positioned the patient supine on the operating room table, arms out and we then prepped and draped in sterile fashion. We confirmed DVT prophylaxis as well as antibiotics had been administered. When we were all in agreement with our timeout we started the procedure. Local anesthetic was injected just above the umbilicus. A small stab incision was made within the umbilicus and a 5 mm trocar was used to enter the abdominal cavity. Insufflation was performed which was tolerated well. 2 more trocars were placed under direct visualization in the right hemiabdomen. Local anesthetic was also given in each of the sites. A 12 mm port was placed in the epigastrium under visualization. I performed a bilateral TAP block under direct visualization with a combination of Exparel, Marcaine and injectable saline. The fundus of the gallbladder was grasped and retracted towards the patient's left shoulder cephalad. This nicely exposed the biliary plate and the relevant anatomy. There was an unusual, non-inflamed but densely connected adhesion from the GB body to the omentum and transverse colon. This was divided against the GB wall with Ligasure. Next, a combination of blunt and electrocautery dissection was performed isolating the cystic duct and the cystic artery. The entire cystic plate was cleared off confirming only 2 structures seen going into the gallbladder. These were clipped and divided. I then removed the rest of the gallbladder off the liver bed using electrocautery and the Ligasure. It was placed in an Endo Catch bag and removed from the abdominal cavity. The specimen was passed off the back table and placed in formalin. I then checked the gallbladder fossa for any bile leaking or any bleeding. Hemostasis was excellent and there was no evidence of any bile leaking from the bed. The 12 mm port site was then closed with 0 Vicryl in the fascia. I rechecked for hemostasis 1 last time and it remained excellent. We released pneumoperitoneum. I removed the 5 mm trocars. The skin was closed with running Monocryl and Dermabond was placed on top of each site. The patient tolerated the procedure well. The sponge, instruments and sharps counts were correct x3 at the end of the procedure. He was extubated and taken to the PACU in hemodynamically stable condition. Date of Procedure: 01/10/25
--- NOTE | 2025-01-10 16:08 | PDOC.DSDIS_ITS ---
Date of service: 01/10/25 Discharge Plan Disposition Patient Disposition: Home Condition: Good Discharge Details Reason For Visit: Stomach Pain Attending Provider: João Shine Primary Care Provider: Mateusz Cody Home Meds and New Rx's Prescriptions: No Action meclizine 12.5 mg tablet 12.5 mg PO BID-QID PRN (Reason: dizziness) Qty: 60 0RF gabapentin 100 mg capsule 200 mg PO TID Qty: 180 5RF ibuprofen [Advil] 200 mg tablet 400 mg PO Q6H PRN losartan 25 mg tablet 25 mg PO DAILY Qty: 90 3RF omeprazole 40 mg capsule,delayed release(DR/EC) 40 mg PO DAILY Qty: 90 3RF rosuvastatin [Crestor] 10 mg tablet 10 mg PO HS Qty: 90 3RF multivitamin Tablet 1 tab PO DAILY Discharge Instructions Additional Instructions: INSTRUCTIONS: Incisions: Keep clean and dry but they do not need to be covered. It is okay to shower but no tub bathing for 1 week. You can peel the glue off after 1 week. Activity: As tolerated. There are no restrictions, but if it hurts, go easier on your body. Diet: Low fat/no grease diet for the next couple of weeks and then slowly intro duce regular food, without restriction, as tolerated. Medications: Resume any/all of your usual/regular home medications. Follow-up: If you are having any issues or concerns call the surgery office immediately. If you want to have a routine follow-up that is perfectly fine and you can call and schedule one. If everything is otherwise going well, you do not need to follow-up. Pain control: Take Tylenol, 1000 mg, every 6 hours on a schedule for the next 3 days. You can use ibuprofen in addition to Tylenol if needed. Ice can be used as needed. No narcotics should be used. Overall: Symptoms should not be worsening. If you have any difficulty breathing or you have return of symptoms of brought you to the hospital or your pain is otherwise worsening each day and you should call the doctor's office or come into the hospital to be checked out. Activity:: Activity as Tolerated Discharge Orders Discharge Orders: Discharge Order (Routine); Ordered 01/10/25 Ordered By: João Shine DS: Diagnosis Discharge Diagnosis (1) Acute cholecystitis: Status: Acute Asessment and Plan: 79-year-old man stable postop from laparoscopic cholecystectomy. He is ready for discharge home.
--- NOTE | 2025-01-10 17:08 | W.ANESPOSTOP ---
Postoperative Evaluation Date, Time and Location Date Performed: 01/10/25 Time Performed: 17:08 Patient Location: Day Surgery Unit Vital Signs Most Recent Imported Vital Signs: Most Recent Vital Signs Temp Pulse Resp BP Pulse Ox 36.4 C L 66 12 185/100 H 94 01/10/25 16:51 01/10/25 16:51 01/10/25 16:51 01/10/25 16:51 01/10/25 16:50 Assessment Mental Status: Arousable with meaningful communication Airway and Respiratory Function: Patent airway with normal (patient baseline) respiratory exam Cardiovascular Function: Hemodynamically Stable Hydration Status: Adequately Hydrated Nausea & Vomiting: No Nausea or Vomiting Pain: Pain is tolerable per patient Peripheral Nerve Block: Patient did not receive a nerve block Postoperative Comments:: Pain 5/10
== END 2025-01-10 17:48 | disposition home or self-care (01) ==
LOC: ER 13:01 → SUR 14:15
PROVIDERS: Emergency Provider Student in an Organized Health Care Education/Training Program; PCP Family Medicine; Visit Provider Student in an Organized Health Care Education/Training Program
PROC: 0FT44ZZ Resection of Gallbladder, Percutaneous Endoscopic Approach (ICD-10-PCS; CPT 47562; principal; 2025-01-10 14:00)
DX: K81.2 Acute cholecystitis with chronic cholecystitis (principal)
CPT/HCPCS: 47562; 36415; 36416; 71275; 74177; 76705; 80053; 82962; 83690; 86850; 86900; 86901; 93005; 96361; 96365; 99285; 83735; 84484; 85025; 88304; 93010; J0131; J0665; J0666; J1100; J1644; J1805; J1885; J2003; J2371; J2404; J2405; J2543; J2704; J3010; J3490

== ENCOUNTER 2025-02-14 15:06 | Outpatient (CLI) | payer MEDICARE, SELFPAY ==
[2025-02-14 14:06] LABS: Abs Immature Grans 0.00 10^3/uL (0.0-0.06); HCT 36.1 % (40.0-50.0); HGB 12.0 g/dL (13.5-17.5); Immature Grans % 0.0 %; MCH 31.9 pg (27.0-33.0); MCHC 33.2 % (32.0-36.0); MCV 96 fL (80-95); MPV 8.9 fL (8.0-11.0); Platelet Count 248 10^3/uL (130-400); RBC 3.76 10^6/uL (4.36-5.78); RDW 12.1 % (11.8-14.1); RDW-SD 42.5 fL; WBC 6.66 10^3/uL (4.4-10.8)
[2025-02-14 14:31] LABS: ALT 19 U/L (16-63); AST 15 U/L (15-37); Albumin 3.6 g/dL (3.4-5.0); Alkaline Phosphatase 118 U/L (46-116); Anion Gap 7.3 mmol/L (3-11); BUN 22 mg/dL (7-18); Bilirubin, Total 0.4 mg/dL (0.2-1.0); CO2 27.7 mmol/L (21.0-32.0); Calcium 9.4 mg/dL (8.5-10.1); Chloride 107 mmol/L (98-107); Estimated GFR 77.52 (mL/min/1.73m2); Ferritin 70 ng/mL (26-388); Glucose 113 mg/dL (74-106); Potassium 4.6 mmol/L (3.5-5.1); Sodium 142 mmol/L (136-145); Total Protein 7.3 g/dL (6.4-8.2)
== END 2025-02-14 15:07 | disposition home or self-care (01) ==
PROVIDERS: PCP Family Medicine; Visit Provider Nurse Practitioner Adult Health
DX: E83.110 Hereditary hemochromatosis (principal)
CPT/HCPCS: 36415; 80053; 82728; 85025

== ENCOUNTER → 2025-05-01 09:47 | Outpatient (BNVA) | payer MEDICARE, SELFPAY | PROVIDERS: PCP Family Medicine; Referring Provider Family Medicine; Visit Provider Internal Medicine Pulmonary Disease | DX: R06.09 Other forms of dyspnea (principal); G47.33 Obstructive sleep apnea (adult) (pediatric); D64.9 Anemia, unspecified; Z87.891 Personal history of nicotine dependence; I10 Essential (primary) hypertension | CPT/HCPCS: 99215; 94618; 36415 ==

== ENCOUNTER 2025-05-01 11:11 | Outpatient (REF) | payer MEDICARE, SELFPAY ==
[2025-05-01 12:36] LABS: ESR 17 mm/hr (0-20)
[2025-05-01 12:38] LABS: C-Reactive Protein < 0.50 mg/dL (<=0.50)
[2025-05-01 12:39] LABS: Creatine Kinase 74 U/L (46-171)
[2025-05-01 12:42] LABS: Folate 15.5 ng/mL (>5.38); Vitamin B12 242 pg/mL (211-911)
== END 2025-05-01 11:12 | disposition home or self-care (01) ==
LOC: LBN 11:11
PROVIDERS: PCP Family Medicine; Visit Provider Internal Medicine Pulmonary Disease
DX: R06.00 Dyspnea, unspecified (principal)
CPT/HCPCS: 80186; 82550; 85652; 82607; 82746; 83880; 86038; 86140

== ENCOUNTER 2025-05-08 01:58 | Outpatient (CLI) | payer MEDICARE, SELFPAY ==
[2025-05-08] MEDS: Levalbuterol HFA 15 GM INH 4 PUFF IH (09:00)
[2025-05-08] MEDS: Inhaler, Assist Device 1 EACH MC (09:00)
--- NOTE | 2025-05-14 13:28 | W.PFT ---
Date of service: 05/08/25 Time of Service: 08:01 Pulmonary Function Test Result Indications: Dyspnea with exertion Impression 1. Good patient effort was noted. ATS standards for reproducibility were met. 2. Spirometry showed mild obstructive lung disease with an FEV1 of 104% (2.64 L) 3. Following the administration of a bronchodilator there was not a significant response 4. TLC was normal. No evidence of restrictive lung disease 5. DLCO was normal at 88% predicted
== END 2025-05-08 01:59 | disposition home or self-care (01) ==
LOC: RT 01:58
PROVIDERS: PCP Family Medicine; Visit Provider Internal Medicine Pulmonary Disease
DX: R06.09 Other forms of dyspnea (principal); J44.9 Chronic obstructive pulmonary disease, unspecified
CPT/HCPCS: 94060; 94726; 94729